=== PATIENT | female | born 1960 | race American Indian/Alaskan Native ===

== ENCOUNTER 2021-03-20 09:12 | Inpatient (IN) | payer MEDICARE ==
[2021-03-20] MEDS ORDERED: IPRATROPIUM/ALBUTEROL SULFATE 3 ML AMPUL.NEB IH ONE (09:49)
[2021-03-20] MEDS ORDERED: methylPREDNISolone Sod Succinate 125 MG/2 ML INJ IV ONE (09:49)
[2021-03-20] MEDS ORDERED: MAGNESIUM SULFATE 2 GM/50 ML BAG IV ONE (09:49)
--- NOTE | 2021-03-20 09:56 | Emergency Department Report ---
ED General Adult HPI - General Chief complaint: Dyspnea/Respdistress Stated complaint: DAT Source: EMS Mode of arrival: Stretcher Limitations: No Limitations - History of Present Illness Initial comments: This is a 60-year-old female with a history of asthma on home nebulizer therapy. She states she used her machine twice yesterday but not today. She has had a nonproductive cough. She denies fever and chills. She has not had a Covid vaccine. She denies any recent exposures. She is not on oral steroids. She denies a history of cardiac problems other than high blood pressure. She has flared up for at least the last 2 days. She does not complain of chest pain. She denies lower extremity swelling but she is noted to have some hand edema. -: Gradual, days(s) Associated Symptoms: denies other symptoms, cough, shortness of breath Treatments Prior to Arrival: none - Related Data Home Medications Medication Instructions Recorded Confirmed Last Taken Sertraline 25 mg PO DAILY 09/26/20 09/26/20 Unknown Previous Rx's Medication Instructions Recorded Last Taken Type Albuterol Sulfate [Albuterol 0.63% 0.63 mg IH TID PRN #90 ml 09/29/20 Unknown Rx NEBS] Ipratropium/Albuterol Sulfate 1 ampul IH Q6HRT #120 ampul.neb 09/29/20 Unknown Rx [DUONEB *Not for PRN Use*] Irbesartan 150 mg PO DAILY #30 09/29/20 Unknown Rx Prednisone [predniSONE 10 mg 10 mg PO .TAPER #1 tab.ds.pk 09/29/20 Unknown Rx (6-Day Pack, 21 Tabs)] hydrALAZINE [Apresoline TAB] 50 mg PO Q8HR #90 tablet 09/29/20 Unknown Rx hydroCHLOROthiazide [HCTZ] 25 mg PO QDAY #30 tablet 09/29/20 Unknown Rx Allergies Allergy/AdvReac Type Severity Reaction Status Date / Time No Known Allergies Allergy Verified 09/25/20 22:47 ED Review of Systems ROS: Stated complaint: DAT Other details as noted in HPI Comment: Unobtainable due to pts medical conditions (Limited due to respiratory distress but adequately obtained) Constitutional: denies: chills, fever Eyes: denies: eye pain, vision change ENT: denies: ear pain, throat pain Respiratory: cough, wheezing Cardiovascular: denies: chest pain, palpitations Endocrine: no symptoms reported Gastrointestinal: denies: abdominal pain, nausea, diarrhea Genitourinary: denies: urgency, dysuria, discharge Musculoskeletal: denies: back pain, arthralgia Skin: denies: rash, lesions Neurological: denies: headache, weakness, paresthesias Psychiatric: denies: anxiety, depression Hematological/Lymphatic: denies: easy bleeding, easy bruising ED Past Medical Hx - Past Medical History Hx Hypertension: Yes Hx Heart Attack/AMI: No Hx Congestive Heart Failure: No Hx Diabetes: No Hx Pulmonary Embolism: No Hx Liver Disease: No Hx Arthritis: Yes Hx Kidney Stones: No Hx Asthma: Yes Hx COPD: No Hx Tuberculosis: No Hx HIV: No - Surgical History Hx Coronary Stent: No Hx Open Heart Surgery: No Hx Pacemaker: No Hx Internal Defibrillator: No Hx Cholecystectomy: No Hx Appendectomy: No Hx Breast Surgery: No - Social History Smoking Status: Unknown if ever smoked - Medications Home Medications: Home Medications Medication Instructions Recorded Confirmed Last Taken Type Sertraline 25 mg PO DAILY 09/26/20 09/26/20 Unknown History Albuterol Sulfate [Albuterol 0.63% 0.63 mg IH TID PRN #90 ml 09/29/20 Unknown Rx NEBS] Ipratropium/Albuterol Sulfate 1 ampul IH Q6HRT #120 ampul.neb 09/29/20 Unknown Rx [DUONEB *Not for PRN Use*] Irbesartan 150 mg PO DAILY #30 09/29/20 Unknown Rx Prednisone [predniSONE 10 mg 10 mg PO .TAPER #1 tab.ds.pk 09/29/20 Unknown Rx (6-Day Pack, 21 Tabs)] hydrALAZINE [Apresoline TAB] 50 mg PO Q8HR #90 tablet 09/29/20 Unknown Rx hydroCHLOROthiazide [HCTZ] 25 mg PO QDAY #30 tablet 09/29/20 Unknown Rx ED Physical Exam - General Limitations: No Limitations ED Course Vital Signs 03/20/21 03/20/21 03/20/21 09:37 10:41 11:30 Temperature 98.8 F Pulse Rate 94 H Pulse Rate [ 102 H 106 H Anterior Bilateral Throughout] Respiratory 16 Rate Respiratory 22 24 Rate [Anterior Bilateral Throughout] Blood Pressure 172/103 O2 Sat by Pulse 97 Oximetry 03/20/21 11:46 Temperature Pulse Rate 100 H Pulse Rate [ Anterior Bilateral Throughout] Respiratory Rate Respiratory Rate [Anterior Bilateral Throughout] Blood Pressure O2 Sat by Pulse Oximetry - Reevaluation(s) Reevaluation #1: Patient with persistent wheezing. Her work of breathing has improved. Her oxygenation is stable. Discussed case with hospitalist. He has agreed with admission. I have ordered an ABG. I do not anticipate that this patient will need BiPAP at this juncture. 03/20/21 12:08 ED Medical Decision Making - Lab Data Result diagrams: 03/20/21 10:20 03/20/21 10:20 Laboratory Results - last 24 hr 03/20/21 03/20/21 03/20/21 10:20 10:20 10:20 WBC 6.2 RBC 4.82 Hgb 13.4 Hct 39.9 MCV 83 MCH 28 MCHC 34 RDW 13.7 Plt Count 158 Lymph % (Auto) 9.3 L [place] % (Auto) 6.5 Eos % (Auto) 0.8 Baso % (Auto) 0.9 Lymph # (Auto) 0.6 L [place] # (Auto) 0.4 Eos # (Auto) 0.0 Baso # (Auto) 0.1 Seg Neutrophils % 82.5 H Seg Neutrophils # 5.2 PT 13.1 INR 1.00 APTT 27.3 Sodium 141 Potassium 3.8 Chloride 104.6 Carbon Dioxide 25 Anion Gap 15 BUN 9 Creatinine 0.7 Estimated GFR > 60 BUN/Creatinine Ratio 13 Glucose 102 H Calcium 8.8 Total Bilirubin 0.30 Direct Bilirubin < 0.2 AST 16 ALT 14 Alkaline Phosphatase 101 Troponin T NT-Pro-B Natriuret Pep Total Protein 7.5 Albumin 3.7 L Albumin/Globulin Ratio 1.0 03/20/21 10:20 WBC RBC Hgb Hct MCV MCH MCHC RDW Plt Count Lymph % (Auto) [place] % (Auto) Eos % (Auto) Baso % (Auto) Lymph # (Auto) [place] # (Auto) Eos # (Auto) Baso # (Auto) Seg Neutrophils % Seg Neutrophils # PT INR APTT Sodium Potassium Chloride Carbon Dioxide Anion Gap BUN Creatinine Estimated GFR BUN/Creatinine Ratio Glucose Calcium Total Bilirubin Direct Bilirubin AST ALT Alkaline Phosphatase Troponin T < 0.010 NT-Pro-B Natriuret Pep 109.0 Total Protein Albumin Albumin/Globulin Ratio - EKG Data -: EKG Interpreted by Me EKG shows normal: sinus rhythm, axis, intervals, QRS complexes, ST-T waves Rate: normal - EKG Data Interpretation: other (PVC) - Radiology Data Radiology results: report reviewed, image reviewed Chest x-ray no acute process Critical care attestation.: If time is entered above; I have spent that time in minutes in the direct care of this critically ill patient, excluding procedure time. ED Disposition Clinical Impression: Status asthmaticus Qualifiers: Asthma severity: moderate Asthma persistence: persistent Qualified Code(s): J45.42 - Moderate persistent asthma with status asthmaticus Disposition: OP ADMIT IP TO THIS HOSP Is pt being admited?: Yes Does the pt Need Aspirin: No Condition: Stable Referrals: PRIMARY CARE, [Primary Care Provider] - 3-5 Days Time of Disposition: 12:10
--- NOTE | 2021-03-20 10:22 | XRay Report ---
CHEST 1 VIEW 03/20/2021 10:14 AM INDICATION / CLINICAL INFORMATION: DAT. COMPARISON: 09/25/2020 FINDINGS: SUPPORT DEVICES: None. HEART / MEDIASTINUM: Stable. LUNGS / PLEURA: No significant pulmonary or pleural abnormality. No pneumothorax. ADDITIONAL FINDINGS: No significant additional findings. IMPRESSION: 1. No acute findings. No significant interval change since 09/25/2020 Signer Name: Andrew Chavez MD Signed: 03/20/2021 10:18 AM Workstation Name: [id number]
[2021-03-20 10:41] LABS: Basophils # (Auto) 0.1 K/mm3 (0.0-0.1); Basophils % (Auto) 0.9 % (0.0-1.8); Eosinophils % (Auto) 0.8 % (0.0-4.3); Hematocrit 39.9 % (30.3-42.9); Hemoglobin 13.4 gm/dl (10.1-14.3); Lymphocytes # (Auto) 0.6 K/mm3 (1.2-5.4); Lymphocytes % (Auto) 9.3 % (13.4-35.0); Mean Corpuscular HGB Conc 34 % (30-34); Mean Corpuscular Volume 83 fl (79-97); Monocytes # (Auto) 0.4 K/mm3 (0.0-0.8); Monocytes % (Auto) 6.5 % (0.0-7.3); Platelet Count 158 K/mm3 (140-440); Red Blood Count 4.82 M/mm3 (3.65-5.03); Red Cell Distribution Width 13.7 % (13.2-15.2)
[2021-03-20 10:50] LABS: Partial Thromboplastin Time 27.3 Sec. (24.2-36.6)
[2021-03-20 11:05] LABS: Alanine Aminotransferase 14 units/L (7-56); Albumin 3.7 g/dL (3.9-5); BUN/Creatinine Ratio 13; Bilirubin,Direct < 0.2 mg/dL (0-0.2); Blood Urea Nitrogen 9 mg/dL (7-17); Calcium 8.8 mg/dL (8.4-10.2); Hemolysis Index 1
[2021-03-20] MEDS ORDERED: ALBUTEROL 2.5 MG/3 ML NEBU IH ONE ×2 (11:27→11:32)
[2021-03-20] MEDS ORDERED: ONDANSETRON 4 MG/2 ML INJ IV PRN (12:39)
--- NOTE | 2021-03-20 12:39 | History and Physical Report ---
History of Present Illness Chief complaint: I feel short of breath History of present illness: 60 YO Female with Asthma, Obesity Hypoventilation Syndrome, OA, HTN presents to ED for evaluation. Patient reports "I feel short of breath". Patient states that she has experienced shortness of breath over the past 4 days with worsening symptoms over the past 2 days. Patient denies improvement in symptoms with increased nebulizer use. Patient acknowledges increased frequency of dry cough, dyspnea on exertion, and decreased exercise tolerance. EMS notified and upon arrival the patient was found to be in distress and subsequently transported to [facility] for further care and evaluation of the aforementioned symptoms. The patient was seen and evaluated in the emergency department. All lab and imaging studies reviewed. Patient found to have audible wheezes on exam, and is using accessory muscles to breathe, and is unable to speak in complete sentences due to shortness of breath. Patient treated with nebulizer therapy with mild improvement in symptoms. Patient desaturates to a pulse oximetry of 88% with exertion. Patient admitted to medical floor due to increased risk of worsening symptoms and minimal response to bronchodilator therapy. Patient also found to have accelerated hypertension. Patient denies fever, chills, chest pain, palpitation, productive cough, skin rash, recent ill contacts, or known exposure to COVID-19. Prior admission on 09/27/2020 reviewed. All medication listed at time of admission has been reconciled. Advanced care planning conducted in the emergency department. Past History Past Medical History: arthritis, hypertension, other (See HPI) Past Surgical History: No surgical history, Other (Reviewed) Social history: single. denies: smoking, alcohol abuse, prescription drug abuse Family history: diabetes, hypertension Medications and Allergies Allergies Allergy/AdvReac Type Severity Reaction Status Date / Time No Known Allergies Allergy Verified 09/25/20 22:47 Home Medications Medication Instructions Recorded Confirmed Last Taken Type Sertraline 25 mg PO DAILY 09/26/20 09/26/20 Unknown History Albuterol Sulfate [Albuterol 0.63% 0.63 mg IH TID PRN #90 ml 09/29/20 Unknown Rx NEBS] Ipratropium/Albuterol Sulfate 1 ampul IH Q6HRT #120 ampul.neb 09/29/20 Unknown Rx [DUONEB *Not for PRN Use*] Irbesartan 150 mg PO DAILY #30 09/29/20 Unknown Rx Prednisone [predniSONE 10 mg 10 mg PO .TAPER #1 tab.ds.pk 09/29/20 Unknown Rx (6-Day Pack, 21 Tabs)] hydrALAZINE [Apresoline TAB] 50 mg PO Q8HR #90 tablet 09/29/20 Unknown Rx hydroCHLOROthiazide [HCTZ] 25 mg PO QDAY #30 tablet 09/29/20 Unknown Rx Review of Systems Constitutional: no weight loss, no weight gain, no fever, no chills Ears, nose, mouth and throat: no ear pain, no ear discharge, no decreased hearing Breasts: no change in shape, no swelling, no mass Cardiovascular: no chest pain, no orthopnea, no palpitations, no rapid/irregular heart beat, no syncope, no lightheadedness Respiratory: shortness of breath, dyspnea on exertion, wheezing, no cough Gastrointestinal: no abdominal pain, no nausea, no vomiting, no diarrhea, no change in bowel habits Genitourinary Female: no pelvic pain, no flank pain, no dysuria, no urinary frequency Rectal: no pain, no incontinence, no bleeding Musculoskeletal: no neck stiffness, no neck pain, no shooting arm pain, no shooting leg pain Integumentary: no rash, no pruritis, no redness, no sores, no jaundice Neurological: no head injury, no transient paralysis, no paralysis, no parathesias, no numbness, no seizures Psychiatric: no anxiety, no memory loss, no change in sleep habits, no insomnia, no change in libido Endocrine: no cold intolerance, no heat intolerance, no excessive thirst, no polydipsia, no nocturia, no excessive sweating Hematologic/Lymphatic: no easy bruising, no easy bleeding, no lymphadenopathy, no lymphedema Allergic/Immunologic: no urticaria, no allergic rhinitis, no anaphylaxis, no angioedema Exam - Constitutional Vitals: Temp Pulse Resp BP Pulse Ox 98.8 F 100 H 24 172/103 97 03/20/21 09:37 03/20/21 11:46 03/20/21 11:30 03/20/21 09:37 03/20/21 09:37 General appearance: Present: mild distress - EENT Eyes: Present: PERRL ENT: hearing intact, clear oral mucosa - Neck Neck: Present: supple, normal ROM - Respiratory Respiratory effort: labored, accessory muscle use, stridor Respiratory: bilateral: diminished, wheezing - Cardiovascular Heart Sounds: Present: S1 & S2. Absent: rub, click - Extremities Extremities: pulses symmetrical, No edema Peripheral Pulses: within normal limits - Abdominal General gastrointestinal: Present: soft, non-tender, non-distended, normal bowel sounds Female genitourinary: Present: normal - Integumentary Integumentary: Present: clear, warm, dry - Musculoskeletal Musculoskeletal: gait normal, strength equal bilaterally - Psychiatric Psychiatric: appropriate mood/affect, intact judgment & insight - Neurologic Neurologic: CNII-XII intact, moves all extremities HEART Score - HEART Score Troponin: Troponin T < 0.010 ng/mL (0.00-0.029) 03/20/21 10:20 Results - Labs CBC & Chem 7: 03/20/21 10:20 03/20/21 10:20 Labs: Abnormal lab results 03/20/21 03/20/21 Range/Units 10:20 10:20 Lymph % (Auto) 9.3 L (13.4-35.0) % Lymph # (Auto) 0.6 L (1.2-5.4) K/mm3 Seg Neutrophils % 82.5 H (40.0-70.0) % Glucose 102 H (65-100) mg/dL Albumin 3.7 L (3.9-5) g/dL Assessment and Plan - Patient Problems (1) Status asthmaticus Current Visit: Yes Status: Acute Qualifiers: Asthma severity: moderate Asthma persistence: persistent Qualified Code(s): J45.42 - Moderate persistent asthma with status asthmaticus Plan to address problem: Chest x-ray, nebulizer therapy, pulse oximetry, IV steroid therapy, supplemental oxygen, pulmonary toilet. (2) Obesity hypoventilation syndrome Current Visit: Yes Status: Acute Plan to address problem: Balanced diet, increase physical activity discharge, outpatient pulmonary follow-up for sleep study. (3) Accelerated hypertension Current Visit: Yes Status: Acute Plan to address problem: Monitor blood pressure every shift, continue medical management. (4) Advance care planning Current Visit: Yes Status: Acute Plan to address problem: Disease education conducted, care plan discussed, diagnosis discussed, prognosis discussed, patient is full code. Patient acknowledges understanding agree with care plan, +30 minutes. (5) DVT prophylaxis Current Visit: No Status: Acute Plan to address problem: SCD to bilateral lower extremities while in bed, patient is ambulatory.
[2021-03-20] MEDS ORDERED: LEVALBUTEROL 0.63 MG/3 ML NEBU IH ONE (15:12)
[2021-03-20] MEDS: LOSARTAN 50 MG TAB PO SCH ×2 (16:28→20:43)
[2021-03-20] MEDS: hydrALAZINE 25 MG TAB PO SCH ×2 (16:28→20:43)
[2021-03-20] MEDS: SERTRALINE 25 MG TAB PO SCH ×2 (16:29→20:43)
[2021-03-20] MEDS: hydroCHLOROthiazide 25 MG TAB PO SCH (16:30)
[2021-03-21] MEDS: ALBUTEROL 2.5 MG/3 ML NEBU IH PRN ×2 (00:11→09:11)
[2021-03-21] MEDS: FAMOTIDINE 10 MG TAB PO SCH ×3 (00:36→22:02)
[2021-03-21] MEDS: methylPREDNISolone Sod Succinate 40 MG/1 ML INJ IV SCH ×4 (00:44→22:02)
[2021-03-21] MEDS: hydrALAZINE 25 MG TAB PO SCH ×6 (00:46→22:15)
[2021-03-21 07:52] LABS: BUN/Creatinine Ratio 20; Blood Urea Nitrogen 14 mg/dL (7-17); Calcium 8.9 mg/dL (8.4-10.2); Hemolysis Index 6
--- NOTE | 2021-03-21 08:14 | Progress Note ---
Assessment and Plan Assessment and plan: Acute asthma exacerbation Obesity hypoventilation syndrome/MENA Accelerated hypertension 03/21/2021. Continue bronchodilators/nebulizers and IV steroids. Continue antihypertensive medications. BiPAP as clinically indicated. O2 supplementation to maintain sats greater than 92%. History Interval history: No new issues overnight. Hospitalist Physical - Constitutional Vitals: Temp Pulse Resp BP Pulse Ox 98.8 F 81 20 158/84 97 03/21/21 07:00 03/21/21 07:00 03/21/21 07:00 03/21/21 07:00 03/21/21 07:00 General appearance: Present: no acute distress - EENT Eyes: Present: PERRL, EOM intact ENT: hearing intact, clear oral mucosa, dentition normal - Neck Neck: Present: supple, normal ROM - Respiratory Respiratory effort: normal Respiratory: bilateral: CTA - Cardiovascular Rhythm: regular Heart Sounds: Present: S1 & S2. Absent: gallop, rub - Extremities Extremities: no ischemia, No edema, Full ROM - Abdominal General gastrointestinal: soft, non-tender, non-distended, normal bowel sounds - Integumentary Integumentary: Present: clear, warm, dry - Neurologic Neurologic: CNII-XII intact, moves all extremities HEART Score - HEART Score Troponin: Troponin T < 0.010 ng/mL (0.00-0.029) 03/20/21 10:20 Results - Labs CBC & Chem 7: 03/20/21 10:20 03/21/21 06:46 Labs: Laboratory Last Values WBC 6.2 K/mm3 (4.5-11.0) 03/20/21 10:20 RBC 4.82 M/mm3 (3.65-5.03) 03/20/21 10:20 Hgb 13.4 gm/dl (10.1-14.3) 03/20/21 10:20 Hct 39.9 % (30.3-42.9) 03/20/21 10:20 MCV 83 fl (79-97) 03/20/21 10:20 MCH 28 pg (28-32) 03/20/21 10:20 MCHC 34 % (30-34) 03/20/21 10:20 RDW 13.7 % (13.2-15.2) 03/20/21 10:20 Plt Count 158 K/mm3 (140-440) 03/20/21 10:20 Lymph % (Auto) 9.3 % (13.4-35.0) L 03/20/21 10:20 [place] % (Auto) 6.5 % (0.0-7.3) 03/20/21 10:20 Eos % (Auto) 0.8 % (0.0-4.3) 03/20/21 10:20 Baso % (Auto) 0.9 % (0.0-1.8) 03/20/21 10:20 Lymph # (Auto) 0.6 K/mm3 (1.2-5.4) L 03/20/21 10:20 [place] # (Auto) 0.4 K/mm3 (0.0-0.8) 03/20/21 10:20 Eos # (Auto) 0.0 K/mm3 (0.0-0.4) 03/20/21 10:20 Baso # (Auto) 0.1 K/mm3 (0.0-0.1) 03/20/21 10:20 Seg Neutrophils % 82.5 % (40.0-70.0) H 03/20/21 10:20 Seg Neutrophils # 5.2 K/mm3 (1.8-7.7) 03/20/21 10:20 PT 13.1 Sec. (12.2-14.9) 03/20/21 10:20 INR 1.00 (0.87-1.13) 03/20/21 10:20 APTT 27.3 Sec. (24.2-36.6) 03/20/21 10:20 ABG pH 7.360 (7.320-7.450) 03/20/21 15:57 POC ABG pCO2 39.3 mmHg (32.0-48.0) 03/20/21 15:57 POC ABG pO2 87.9 mmHg (83-108) 03/20/21 15:57 POC ABG HCO3 21.7 03/20/21 15:57 ABG O2 Saturation 97.0 (0-100) 03/20/21 15:57 POC ABG Base Excess -3.4 03/20/21 15:57 ABG Hemoglobin 14.3 (12.0-17.5) 03/20/21 15:57 ABG Oxyhemoglobin 95.5 (94-98) 03/20/21 15:57 ABG Methemoglobin 0.3 (0.0-1.5) 03/20/21 15:57 ABG Sodium 141.3 mmol/L (136.0-145.0) 03/20/21 15:57 ABG Potassium 3.6 mmol/L (3.40-4.50) 03/20/21 15:57 ABG Chloride 105.0 mmol/L (98-107) 03/20/21 15:57 ABG Glucose 177 mg/dL (65-95) H 03/20/21 15:57 Carboxyhemoglobin 1.2 (0.5-1.5) 03/20/21 15:57 FiO2 % 35.0 03/20/21 15:57 Sodium 140 mmol/L (137-145) 03/21/21 06:46 Potassium 4.3 mmol/L (3.6-5.0) 03/21/21 06:46 Chloride 103.1 mmol/L (98-107) 03/21/21 06:46 Carbon Dioxide 26 mmol/L (22-30) 03/21/21 06:46 Anion Gap 15 mmol/L 03/21/21 06:46 BUN 14 mg/dL (7-17) 03/21/21 06:46 Creatinine 0.7 mg/dL (0.6-1.2) 03/21/21 06:46 Estimated GFR > 60 ml/min 03/21/21 06:46 BUN/Creatinine Ratio 20 % 03/21/21 06:46 Glucose 137 mg/dL (65-100) H 03/21/21 06:46 Calcium 8.9 mg/dL (8.4-10.2) 03/21/21 06:46 Total Bilirubin 0.30 mg/dL (0.1-1.2) 03/20/21 10:20 Direct Bilirubin < 0.2 mg/dL (0-0.2) 03/20/21 10:20 AST 16 units/L (5-40) 03/20/21 10:20 ALT 14 units/L (7-56) 03/20/21 10:20 Alkaline Phosphatase 101 units/L (35-129) 03/20/21 10:20 Troponin T < 0.010 ng/mL (0.00-0.029) 03/20/21 10:20 NT-Pro-B Natriuret Pep 109.0 pg/mL (0-900) 03/20/21 10:20 Total Protein 7.5 g/dL (6.3-8.2) 03/20/21 10:20 Albumin 3.7 g/dL (3.9-5) L 03/20/21 10:20 Albumin/Globulin Ratio 1.0 % 03/20/21 10:20 Arterial Blood Glucose 177 mg/dL (65-95) H 03/20/21 15:57 Arterial Blood Ionized Calcium 4.7 mg/dL (4.6-5.3) 03/20/21 15:57 Active Medications - Current Medications Current Medications: Generic Name Dose Route Start Last Admin Trade Name Freq PRN Reason Stop Dose Admin Acetaminophen 650 mg 03/20/21 12:39 Acetaminophen 325 Mg Tab PO Q4H PRN Pain MILD(1-3)/Fever >100.5/YOUSIF Albuterol 2.5 mg 03/20/21 12:39 03/21/21 00:11 Albuterol 2.5 Mg/3 Ml Nebu IH 2.5 mg Q4H PRN Administration Shortness Of Breath Famotidine 10 mg 03/20/21 22:00 03/21/21 00:36 Famotidine 10 Mg Tab PO 10 mg BID REMI Administration Hydralazine HCl 50 mg 03/20/21 15:00 03/21/21 06:38 Hydralazine 25 Mg Tab PO 50 mg Q8HR REMI Administration Hydrochlorothiazide 25 mg 03/20/21 15:00 03/20/21 16:30 Hydrochlorothiazide 25 Mg Tab PO 25 mg QDAY REMI Administration Losartan Potassium 50 mg 03/20/21 15:00 03/20/21 20:43 Losartan 50 Mg Tab PO Not Given QDAY REMI Methylprednisolone Sodium Succinate 40 mg 03/20/21 22:00 03/21/21 06:38 Methylprednisolone Sod Succinate 40 Mg/1 Ml Inj IV 40 mg Q8HR REMI Administration Ondansetron HCl 4 mg 03/20/21 12:39 Ondansetron 4 Mg/2 Ml Inj IV Q8H PRN Nausea And Vomiting Sertraline HCl 25 mg 03/20/21 15:00 03/20/21 20:43 Sertraline 25 Mg Tab PO Not Given QDAY REMI Sodium Chloride 10 ml 03/20/21 22:00 03/21/21 00:45 Sodium Chloride 0.9% 10 Ml Flush Syringe IV 10 ml BID REMI Administration Sodium Chloride 10 ml 03/20/21 12:39 Sodium Chloride 0.9% 10 Ml Flush Syringe IV PRN PRN LINE FLUSH
[2021-03-21] MEDS ORDERED: IRBESARTAN 150 MG PO SCH (10:00)
[2021-03-21] MEDS ORDERED: SERTRALINE 25 MG PO SCH (10:00)
[2021-03-21] MEDS: LOSARTAN 50 MG TAB PO SCH (10:38)
[2021-03-21] MEDS: hydroCHLOROthiazide 25 MG TAB PO SCH (10:38)
[2021-03-21] MEDS: SERTRALINE 25 MG TAB PO SCH (10:38)
[2021-03-21] MEDS ORDERED: ALBUTEROL 2.5 MG/3 ML NEBU IH PRN (12:30)
[2021-03-21] MEDS: IPRATROPIUM/ALBUTEROL SULFATE 3 ML AMPUL.NEB IH SCH ×2 (14:55→21:32)
[2021-03-21] MEDS: ARFORMOTEROL 15 MCG/2 ML NEBU IH SCH (21:32)
[2021-03-21] MEDS: BUDESONIDE 0.5 MG/2 ML NEBU IH SCH (21:32)
[2021-03-22] MEDS: IPRATROPIUM/ALBUTEROL SULFATE 3 ML AMPUL.NEB IH SCH ×4 (02:18→20:39)
[2021-03-22] MEDS ORDERED: methylPREDNISolone Sod Succinate 125 MG/2 ML INJ IV ONE (03:24)
[2021-03-22] MEDS: hydrALAZINE 25 MG TAB PO SCH (05:50)
[2021-03-22] MEDS: methylPREDNISolone Sod Succinate 40 MG/1 ML INJ IV SCH ×3 (05:50→22:02)
[2021-03-22 08:09] LABS: Hematocrit 42.2 % (30.3-42.9); Hemoglobin 13.5 gm/dl (10.1-14.3); Mean Corpuscular HGB Conc 32 % (30-34); Mean Corpuscular Volume 84 fl (79-97); Platelet Count 207 K/mm3 (140-440); Red Blood Count 5.03 M/mm3 (3.65-5.03); Red Cell Distribution Width 14.2 % (13.2-15.2)
[2021-03-22 08:29] LABS: Blood Urea Nitrogen 16 mg/dL (7-17); Calcium 9.2 mg/dL (8.4-10.2); Hemolysis Index 12
[2021-03-22 08:32] LABS: BUN/Creatinine Ratio 23
[2021-03-22 08:57] LABS: Platelet Estimate Consistent w Auto; RBC Morphology Normal; Total Cells Counted 100
[2021-03-22] MEDS: ARFORMOTEROL 15 MCG/2 ML NEBU IH SCH ×2 (09:11→20:39)
[2021-03-22] MEDS: BUDESONIDE 0.5 MG/2 ML NEBU IH SCH ×2 (09:12→20:39)
[2021-03-22] MEDS: FAMOTIDINE 10 MG TAB PO SCH ×2 (09:40→22:02)
[2021-03-22] MEDS: SERTRALINE 25 MG TAB PO SCH (09:41)
[2021-03-22] MEDS: hydroCHLOROthiazide 25 MG TAB PO SCH (09:41)
[2021-03-22] MEDS: LOSARTAN 50 MG TAB PO SCH (09:41)
--- NOTE | 2021-03-22 10:50 | Progress Note ---
Assessment and Plan Assessment and plan: --Acute exacerbation of bronchial asthma , oxygen titrate O2 sats to more than 90% nebulizer therapy, tapering dose of IV steroids, and IV Levaquin Inhalation steroids, supportive care I will also add antihistamine breathing exercise, Closely monitor O2 requirements, home oxygen evaluation at discharge I will also give some Lasix IV Pulmonary consult if no improvement Home O2 evaluation at discharge --Obesity; BMI 31.9 Lifestyle changes, dietary modification exercise as tolerated When medically stable, increase physical activity discharge, outpatient pulmonary follow-up for sleep study. To evaluate for MENA --Accelerated hypertension Monitor blood pressure every shift, continue medical management. --Advance care planning disease education conducted, care plan discussed, diagnosis discussed, prognosis discussed, patient is full code. Patient acknowledges understanding agree with care plan, +30 minutes. --DVT prophylaxis Current Visit: No Status: Acute Plan to address problem: SCD to bilateral lower extremities while in bed, patient is ambulatory. Closely monitor patient and adjust management as needed Plan of care reviewed with the patient and her nurse 03/22/2021; antihistamine, IV antibiotic, IV Lasix regimen Tapering dose of steroids, consult pulmonary if needed History Interval history: I have seen and examined the patient at the bedside Patient's chart and medications reviewed Patient has severe wheezing and shortness of breath Denies chest pain Vital signs noted Hospitalist Physical - Constitutional Vitals: Temp Pulse Resp BP Pulse Ox 98.5 F 93 H 20 149/96 96 03/22/21 03:55 03/22/21 10:20 03/22/21 09:12 03/22/21 10:20 03/22/21 10:20 General appearance: Present: mild distress, well-nourished, obese, other (Audible wheeze) - EENT Eyes: Present: PERRL, EOM intact ENT: hearing intact, clear oral mucosa - Neck Neck: Present: supple, normal ROM - Respiratory Respiratory effort: labored Respiratory: bilateral: diminished, rhonchi, wheezing - Cardiovascular Rhythm: regular Heart Sounds: Present: S1 & S2 - Extremities Extremities: no ischemia, No edema - Abdominal General gastrointestinal: soft, non-tender, non-distended, normal bowel sounds - Integumentary Integumentary: Present: clear, warm - Psychiatric Psychiatric: appropriate mood/affect, cooperative - Neurologic Neurologic: CNII-XII intact, moves all extremities HEART Score - HEART Score Troponin: Troponin T < 0.010 ng/mL (0.00-0.029) 03/20/21 10:20 Results - Labs CBC & Chem 7: 03/22/21 07:04 03/22/21 07:04 Labs: Laboratory Last Values WBC 15.2 K/mm3 (4.5-11.0) H 03/22/21 07:04 RBC 5.03 M/mm3 (3.65-5.03) 03/22/21 07:04 Hgb 13.5 gm/dl (10.1-14.3) 03/22/21 07:04 Hct 42.2 % (30.3-42.9) 03/22/21 07:04 MCV 84 fl (79-97) 03/22/21 07:04 MCH 27 pg (28-32) L 03/22/21 07:04 MCHC 32 % (30-34) 03/22/21 07:04 RDW 14.2 % (13.2-15.2) 03/22/21 07:04 Plt Count 207 K/mm3 (140-440) 03/22/21 07:04 Lymph % (Auto) 9.3 % (13.4-35.0) L 03/20/21 10:20 Schleicher % (Auto) 6.5 % (0.0-7.3) 03/20/21 10:20 Eos % (Auto) 0.8 % (0.0-4.3) 03/20/21 10:20 Baso % (Auto) 0.9 % (0.0-1.8) 03/20/21 10:20 Lymph # (Auto) 0.6 K/mm3 (1.2-5.4) L 03/20/21 10:20 Schleicher # (Auto) 0.4 K/mm3 (0.0-0.8) 03/20/21 10:20 Eos # (Auto) 0.0 K/mm3 (0.0-0.4) 03/20/21 10:20 Baso # (Auto) 0.1 K/mm3 (0.0-0.1) 03/20/21 10:20 Add Manual Diff Complete 03/22/21 07:04 Total Counted 100 03/22/21 07:04 Seg Neutrophils % [employer] 03/22/21 07:04 Seg Neuts % (Manual) 96.0 % (40.0-70.0) H 03/22/21 07:04 Lymphocytes % (Manual) 1.0 % (13.4-35.0) L 03/22/21 07:04 Monocytes % (Manual) 3.0 % (0.0-7.3) 03/22/21 07:04 Nucleated RBC % Not Reportable 03/22/21 07:04 Seg Neutrophils # 5.2 K/mm3 (1.8-7.7) 03/20/21 10:20 Seg Neutrophils # Man 14.6 K/mm3 (1.8-7.7) H 03/22/21 07:04 Band Neutrophils # 0.0 K/mm3 03/22/21 07:04 Lymphocytes # (Manual) 0.2 K/mm3 (1.2-5.4) L 03/22/21 07:04 Abs React Lymphs (Man) 0.0 K/mm3 03/22/21 07:04 Monocytes # (Manual) 0.5 K/mm3 (0.0-0.8) 03/22/21 07:04 Eosinophils # (Manual) 0.0 K/mm3 (0.0-0.4) 03/22/21 07:04 Basophils # (Manual) 0.0 K/mm3 (0.0-0.1) 03/22/21 07:04 Metamyelocytes # 0.0 K/mm3 03/22/21 07:04 Myelocytes # 0.0 K/mm3 03/22/21 07:04 Promyelocytes # 0.0 K/mm3 03/22/21 07:04 Blast Cells # 0.0 K/mm3 03/22/21 07:04 WBC Morphology Not Reportable 03/22/21 07:04 Hypersegmented Neuts Not Reportable 03/22/21 07:04 Hyposegmented Neuts Not Reportable 03/22/21 07:04 Hypogranular Neuts Not Reportable 03/22/21 07:04 Smudge Cells Not Reportable 03/22/21 07:04 Toxic Granulation Not Reportable 03/22/21 07:04 Toxic Vacuolation Not Reportable 03/22/21 07:04 Dohle Bodies Not Reportable 03/22/21 07:04 Pelger-Huet Anomaly Not Reportable 03/22/21 07:04 Yobani Rods Not Reportable 03/22/21 07:04 Platelet Estimate Consistent w auto 03/22/21 07:04 Clumped Platelets Not Reportable 03/22/21 07:04 Plt Clumps, EDTA Not Reportable 03/22/21 07:04 Large Platelets Not Reportable 03/22/21 07:04 Giant Platelets Not Reportable 03/22/21 07:04 Platelet Satelliting Not Reportable 03/22/21 07:04 Plt Morphology Comment Not Reportable 03/22/21 07:04 RBC Morphology Normal 03/22/21 07:04 Dimorphic RBCs Not Reportable 03/22/21 07:04 Polychromasia Not Reportable 03/22/21 07:04 Hypochromasia Not Reportable 03/22/21 07:04 Poikilocytosis Not Reportable 03/22/21 07:04 Anisocytosis Not Reportable 03/22/21 07:04 Microcytosis Not Reportable 03/22/21 07:04 Macrocytosis Not Reportable 03/22/21 07:04 Spherocytes Not Reportable 03/22/21 07:04 Pappenheimer Bodies Not Reportable 03/22/21 07:04 Sickle Cells Not Reportable 03/22/21 07:04 Target Cells Not Reportable 03/22/21 07:04 Tear Drop Cells Not Reportable 03/22/21 07:04 Ovalocytes Not Reportable 03/22/21 07:04 Helmet Cells Not Reportable 03/22/21 07:04 Bains-Cassandra Bodies Not Reportable 03/22/21 07:04 [place] Rings Not Reportable 03/22/21 07:04 [place] Cells Not Reportable 03/22/21 07:04 Bite Cells Not Reportable 03/22/21 07:04 Crenated Cell Not Reportable 03/22/21 07:04 Elliptocytes Not Reportable 03/22/21 07:04 Acanthocytes (Spur) Not Reportable 03/22/21 07:04 Rouleaux Not Reportable 03/22/21 07:04 Hemoglobin C Crystals Not Reportable 03/22/21 07:04 Schistocytes Not Reportable 03/22/21 07:04 Malaria parasites Not Reportable 03/22/21 07:04 Aubrey Bodies Not Reportable 03/22/21 07:04 Hem Pathologist Commnt No 03/22/21 07:04 PT 13.1 Sec. (12.2-14.9) 03/20/21 10:20 INR 1.00 (0.87-1.13) 03/20/21 10:20 APTT 27.3 Sec. (24.2-36.6) 03/20/21 10:20 ABG pH 7.360 (7.320-7.450) 03/20/21 15:57 POC ABG pCO2 39.3 mmHg (32.0-48.0) 03/20/21 15:57 POC ABG pO2 87.9 mmHg (83-108) 03/20/21 15:57 POC ABG HCO3 21.7 03/20/21 15:57 ABG O2 Saturation 97.0 (0-100) 03/20/21 15:57 POC ABG Base Excess -3.4 03/20/21 15:57 ABG Hemoglobin 14.3 (12.0-17.5) 03/20/21 15:57 ABG Oxyhemoglobin 95.5 (94-98) 03/20/21 15:57 ABG Methemoglobin 0.3 (0.0-1.5) 03/20/21 15:57 ABG Sodium 141.3 mmol/L (136.0-145.0) 03/20/21 15:57 ABG Potassium 3.6 mmol/L (3.40-4.50) 03/20/21 15:57 ABG Chloride 105.0 mmol/L (98-107) 03/20/21 15:57 ABG Glucose 177 mg/dL (65-95) H 03/20/21 15:57 Carboxyhemoglobin 1.2 (0.5-1.5) 03/20/21 15:57 FiO2 % 35.0 03/20/21 15:57 Sodium 140 mmol/L (137-145) 03/22/21 07:04 Potassium 4.1 mmol/L (3.6-5.0) 03/22/21 07:04 Chloride 103.7 mmol/L (98-107) 03/22/21 07:04 Carbon Dioxide 25 mmol/L (22-30) 03/22/21 07:04 Anion Gap 15 mmol/L 03/22/21 07:04 BUN 16 mg/dL (7-17) 03/22/21 07:04 Creatinine 0.7 mg/dL (0.6-1.2) 03/22/21 07:04 Estimated GFR > 60 ml/min 03/22/21 07:04 BUN/Creatinine Ratio 23 % 03/22/21 07:04 Glucose 155 mg/dL (65-100) H 03/22/21 07:04 POC Glucose 168 mg/dL (70-105) H 03/22/21 07:31 Calcium 9.2 mg/dL (8.4-10.2) 03/22/21 07:04 Total Bilirubin 0.30 mg/dL (0.1-1.2) 03/20/21 10:20 Direct Bilirubin < 0.2 mg/dL (0-0.2) 03/20/21 10:20 AST 16 units/L (5-40) 03/20/21 10:20 ALT 14 units/L (7-56) 03/20/21 10:20 Alkaline Phosphatase 101 units/L (35-129) 03/20/21 10:20 Troponin T < 0.010 ng/mL (0.00-0.029) 03/20/21 10:20 NT-Pro-B Natriuret Pep 109.0 pg/mL (0-900) 03/20/21 10:20 Total Protein 7.5 g/dL (6.3-8.2) 03/20/21 10:20 Albumin 3.7 g/dL (3.9-5) L 03/20/21 10:20 Albumin/Globulin Ratio 1.0 % 03/20/21 10:20 Arterial Blood Glucose 177 mg/dL (65-95) H 03/20/21 15:57 Arterial Blood Ionized Calcium 4.7 mg/dL (4.6-5.3) 03/20/21 15:57 Norman/IV: Voiding Method Toilet Active Medications - Current Medications Current Medications: Generic Name Dose Route Start Last Admin Trade Name Freq PRN Reason Stop Dose Admin Acetaminophen 650 mg 03/20/21 12:39 Acetaminophen 325 Mg Tab PO Q4H PRN Pain MILD(1-3)/Fever >100.5/YOUSIF Albuterol 2.5 mg 03/21/21 12:30 Albuterol 2.5 Mg/3 Ml Nebu IH Q4H PRN Shortness Of Breath Albuterol/Ipratropium 1 ampul 03/21/21 14:00 03/22/21 09:12 Ipratropium/Albuterol Sulfate 3 Ml Ampul.Neb IH Not Given Q6HRT REMI Arformoterol Tartrate 15 mcg 03/21/21 20:00 03/22/21 09:11 Arformoterol 15 Mcg/2 Ml Nebu IH 15 mcg Q12HRT REMI Administration Budesonide 0.5 mg 03/21/21 20:00 03/22/21 09:12 Budesonide 0.5 Mg/2 Ml Nebu IH 0.5 mg Q12HRT REMI Administration Famotidine 10 mg 03/20/21 22:00 03/22/21 09:40 Famotidine 10 Mg Tab PO 10 mg BID REMI Administration Hydralazine HCl 50 mg 03/20/21 15:00 03/22/21 05:50 Hydralazine 25 Mg Tab PO Not Given Q8HR REMI Hydrochlorothiazide 25 mg 03/20/21 15:00 03/22/21 09:41 Hydrochlorothiazide 25 Mg Tab PO Not Given QDAY REMI Losartan Potassium 50 mg 03/20/21 15:00 03/22/21 09:41 Losartan 50 Mg Tab PO Not Given QDAY [facility] Methylprednisolone Sodium Succinate 40 mg 03/20/21 22:00 03/22/21 05:50 Methylprednisolone Sod Succinate 40 Mg/1 Ml Inj IV 40 mg Q8HR REMI Administration Ondansetron HCl 4 mg 03/20/21 12:39 Ondansetron 4 Mg/2 Ml Inj IV Q8H PRN Nausea And Vomiting Sertraline HCl 25 mg 03/20/21 15:00 03/22/21 09:41 Sertraline 25 Mg Tab PO Not Given QDAY REMI Sodium Chloride 10 ml 03/20/21 22:00 03/22/21 09:41 Sodium Chloride 0.9% 10 Ml Flush Syringe IV 10 ml BID REMI Administration Sodium Chloride 10 ml 03/20/21 12:39 Sodium Chloride 0.9% 10 Ml Flush Syringe IV PRN PRN LINE FLUSH
[2021-03-22] MEDS ORDERED: [UNRECOGNIZED DRUG - OTHER] PO SCH (12:30)
[2021-03-22] MEDS ORDERED: LOSARTAN 50 MG TAB PO SCH (13:00)
[2021-03-22] MEDS: HYDROCHLOROTHIAZIDE PO SCH (15:57)
[2021-03-22] MEDS: IRBESARTAN PO SCH (15:57)
[2021-03-22] MEDS ORDERED: FUROSEMIDE 40 MG/4 ML INJ IV SCH (17:00)
[2021-03-22] MEDS ORDERED: CETIRIZINE 10 MG TAB PO SCH (17:00)
--- NOTE | 2021-03-22 17:50 | Electrocardiograph Report ---
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
[2021-03-22] MEDS: ACETAMINOPHEN 325 MG TAB PO PRN (22:31)
[2021-03-23] MEDS: IPRATROPIUM/ALBUTEROL SULFATE 3 ML AMPUL.NEB IH SCH ×4 (02:49→19:51)
[2021-03-23] MEDS: methylPREDNISolone Sod Succinate 40 MG/1 ML INJ IV SCH ×3 (05:44→22:22)
[2021-03-23] MEDS: ARFORMOTEROL 15 MCG/2 ML NEBU IH SCH ×2 (08:36→19:51)
[2021-03-23] MEDS: BUDESONIDE 0.5 MG/2 ML NEBU IH SCH ×2 (08:36→19:51)
[2021-03-23] MEDS: FAMOTIDINE 10 MG TAB PO SCH ×2 (09:44→22:21)
[2021-03-23] MEDS: FUROSEMIDE 40 MG/4 ML INJ IV SCH (09:45)
[2021-03-23] MEDS: SERTRALINE 25 MG TAB PO SCH (09:45)
[2021-03-23] MEDS: CETIRIZINE 10 MG TAB PO SCH (09:45)
[2021-03-23] MEDS: IRBESARTAN PO SCH (09:55)
[2021-03-23] MEDS: HYDROCHLOROTHIAZIDE PO SCH (09:55)
[2021-03-23] MEDS ORDERED: IRBESARTAN PO SCH (10:00)
[2021-03-23] MEDS ORDERED: HYDROCHLOROTHIAZIDE PO SCH (10:00)
--- NOTE | 2021-03-23 10:56 | Progress Note ---
Assessment and Plan Assessment and plan: --Acute exacerbation of bronchial asthma , oxygen titrate O2 sats to more than 90% nebulizer therapy, tapering dose of IV steroids, and IV Levaquin Inhalation steroids, supportive care I will also add antihistamine breathing exercise, Closely monitor O2 requirements, home oxygen evaluation at discharge I will also give some Lasix IV Pulmonary consult if no improvement Home O2 evaluation at discharge --Obesity; BMI 31.9 Lifestyle changes, dietary modification exercise as tolerated When medically stable, increase physical activity discharge, outpatient pulmonary follow-up for sleep study. To evaluate for MENA --Accelerated hypertension Monitor blood pressure every shift, continue medical management. --Advance care planning disease education conducted, care plan discussed, diagnosis discussed, prognosis discussed, patient is full code. Patient acknowledges understanding agree with care plan, +30 minutes. --DVT prophylaxis Current Visit: No Status: Acute Plan to address problem: SCD to bilateral lower extremities while in bed, patient is ambulatory. Closely monitor patient and adjust management as needed Plan of care reviewed with the patient and her nurse 03/22/2021; antihistamine, IV antibiotic, IV Lasix regimen Tapering dose of steroids, consult pulmonary if needed 03/23/2021; feels slightly better, PT evaluation and recommendations Home O2 evaluation and set up if needed along with home health services Possible discharge tomorrow if stable History Interval history: I have seen and examined the patient at the bedside Patient's chart and medications reviewed Patient feels slightly better Still has some wheeze Vital signs noted Hospitalist Physical - Constitutional Vitals: Temp Pulse Resp BP Pulse Ox 97.7 F 98 H 18 160/87 96 03/23/21 06:28 03/23/21 08:42 03/23/21 08:42 03/23/21 06:28 03/23/21 08:40 General appearance: Present: mild distress, well-nourished, obese, other (Audible wheeze) - EENT Eyes: Present: PERRL, EOM intact - Neck Neck: Present: supple, normal ROM - Respiratory Respiratory effort: normal Respiratory: bilateral: diminished, rhonchi, wheezing, negative: rales - Cardiovascular Rhythm: regular Heart Sounds: Present: S1 & S2 - Extremities Extremities: no ischemia, No edema - Abdominal General gastrointestinal: soft, non-tender, non-distended, normal bowel sounds - Integumentary Integumentary: Present: clear, warm - Psychiatric Psychiatric: appropriate mood/affect, cooperative - Neurologic Neurologic: CNII-XII intact, moves all extremities HEART Score - HEART Score Troponin: Troponin T < 0.010 ng/mL (0.00-0.029) 03/20/21 10:20 Results - Labs CBC & Chem 7: 03/22/21 07:04 03/22/21 07:04 Labs: Laboratory Last Values WBC 15.2 K/mm3 (4.5-11.0) H 03/22/21 07:04 RBC 5.03 M/mm3 (3.65-5.03) 03/22/21 07:04 Hgb 13.5 gm/dl (10.1-14.3) 03/22/21 07:04 Hct 42.2 % (30.3-42.9) 03/22/21 07:04 MCV 84 fl (79-97) 03/22/21 07:04 MCH 27 pg (28-32) L 03/22/21 07:04 MCHC 32 % (30-34) 03/22/21 07:04 RDW 14.2 % (13.2-15.2) 03/22/21 07:04 Plt Count 207 K/mm3 (140-440) 03/22/21 07:04 Lymph % (Auto) 9.3 % (13.4-35.0) L 03/20/21 10:20 Ralls % (Auto) 6.5 % (0.0-7.3) 03/20/21 10:20 Eos % (Auto) 0.8 % (0.0-4.3) 03/20/21 10:20 Baso % (Auto) 0.9 % (0.0-1.8) 03/20/21 10:20 Lymph # (Auto) 0.6 K/mm3 (1.2-5.4) L 03/20/21 10:20 Ralls # (Auto) 0.4 K/mm3 (0.0-0.8) 03/20/21 10:20 Eos # (Auto) 0.0 K/mm3 (0.0-0.4) 03/20/21 10:20 Baso # (Auto) 0.1 K/mm3 (0.0-0.1) 03/20/21 10:20 Add Manual Diff Complete 03/22/21 07:04 Total Counted 100 03/22/21 07:04 Seg Neutrophils % Executive Rec[employer] 03/22/21 07:04 Seg Neuts % (Manual) 96.0 % (40.0-70.0) H 03/22/21 07:04 Lymphocytes % (Manual) 1.0 % (13.4-35.0) L 03/22/21 07:04 Monocytes % (Manual) 3.0 % (0.0-7.3) 03/22/21 07:04 Nucleated RBC % Not Reportable 03/22/21 07:04 Seg Neutrophils # 5.2 K/mm3 (1.8-7.7) 03/20/21 10:20 Seg Neutrophils # Man 14.6 K/mm3 (1.8-7.7) H 03/22/21 07:04 Band Neutrophils # 0.0 K/mm3 03/22/21 07:04 Lymphocytes # (Manual) 0.2 K/mm3 (1.2-5.4) L 03/22/21 07:04 Abs React Lymphs (Man) 0.0 K/mm3 03/22/21 07:04 Monocytes # (Manual) 0.5 K/mm3 (0.0-0.8) 03/22/21 07:04 Eosinophils # (Manual) 0.0 K/mm3 (0.0-0.4) 03/22/21 07:04 Basophils # (Manual) 0.0 K/mm3 (0.0-0.1) 03/22/21 07:04 Metamyelocytes # 0.0 K/mm3 03/22/21 07:04 Myelocytes # 0.0 K/mm3 03/22/21 07:04 Promyelocytes # 0.0 K/mm3 03/22/21 07:04 Blast Cells # 0.0 K/mm3 03/22/21 07:04 WBC Morphology Not Reportable 03/22/21 07:04 Hypersegmented Neuts Not Reportable 03/22/21 07:04 Hyposegmented Neuts Not Reportable 03/22/21 07:04 Hypogranular Neuts Not Reportable 03/22/21 07:04 Smudge Cells Not Reportable 03/22/21 07:04 Toxic Granulation Not Reportable 03/22/21 07:04 Toxic Vacuolation Not Reportable 03/22/21 07:04 Dohle Bodies Not Reportable 03/22/21 07:04 Pelger-Huet Anomaly Not Reportable 03/22/21 07:04 Yobani Rods Not Reportable 03/22/21 07:04 Platelet Estimate Consistent w auto 03/22/21 07:04 Clumped Platelets Not Reportable 03/22/21 07:04 Plt Clumps, EDTA Not Reportable 03/22/21 07:04 Large Platelets Not Reportable 03/22/21 07:04 Giant Platelets Not Reportable 03/22/21 07:04 Platelet Satelliting Not Reportable 03/22/21 07:04 Plt Morphology Comment Not Reportable 03/22/21 07:04 RBC Morphology Normal 03/22/21 07:04 Dimorphic RBCs Not Reportable 03/22/21 07:04 Polychromasia Not Reportable 03/22/21 07:04 Hypochromasia Not Reportable 03/22/21 07:04 Poikilocytosis Not Reportable 03/22/21 07:04 Anisocytosis Not Reportable 03/22/21 07:04 Microcytosis Not Reportable 03/22/21 07:04 Macrocytosis Not Reportable 03/22/21 07:04 Spherocytes Not Reportable 03/22/21 07:04 Pappenheimer Bodies Not Reportable 03/22/21 07:04 Sickle Cells Not Reportable 03/22/21 07:04 Target Cells Not Reportable 03/22/21 07:04 Tear Drop Cells Not Reportable 03/22/21 07:04 Ovalocytes Not Reportable 03/22/21 07:04 Helmet Cells Not Reportable 03/22/21 07:04 Bains-[place] Bodies Not Reportable 03/22/21 07:04 [place] Rings Not Reportable 03/22/21 07:04 Yunier Cells Not Reportable 03/22/21 07:04 Bite Cells Not Reportable 03/22/21 07:04 Crenated Cell Not Reportable 03/22/21 07:04 Elliptocytes Not Reportable 03/22/21 07:04 Acanthocytes (Spur) Not Reportable 03/22/21 07:04 Rouleaux Not Reportable 03/22/21 07:04 Hemoglobin C Crystals Not Reportable 03/22/21 07:04 Schistocytes Not Reportable 03/22/21 07:04 Malaria parasites Not Reportable 03/22/21 07:04 Aubrey Bodies Not Reportable 03/22/21 07:04 Hem Pathologist Commnt No 03/22/21 07:04 PT 13.1 Sec. (12.2-14.9) 03/20/21 10:20 INR 1.00 (0.87-1.13) 03/20/21 10:20 APTT 27.3 Sec. (24.2-36.6) 03/20/21 10:20 ABG pH 7.360 (7.320-7.450) 03/20/21 15:57 POC ABG pCO2 39.3 mmHg (32.0-48.0) 03/20/21 15:57 POC ABG pO2 87.9 mmHg (83-108) 03/20/21 15:57 POC ABG HCO3 21.7 03/20/21 15:57 ABG O2 Saturation 97.0 (0-100) 03/20/21 15:57 POC ABG Base Excess -3.4 03/20/21 15:57 ABG Hemoglobin 14.3 (12.0-17.5) 03/20/21 15:57 ABG Oxyhemoglobin 95.5 (94-98) 03/20/21 15:57 ABG Methemoglobin 0.3 (0.0-1.5) 03/20/21 15:57 ABG Sodium 141.3 mmol/L (136.0-145.0) 03/20/21 15:57 ABG Potassium 3.6 mmol/L (3.40-4.50) 03/20/21 15:57 ABG Chloride 105.0 mmol/L (98-107) 03/20/21 15:57 ABG Glucose 177 mg/dL (65-95) H 03/20/21 15:57 Carboxyhemoglobin 1.2 (0.5-1.5) 03/20/21 15:57 FiO2 % 35.0 03/20/21 15:57 Sodium 140 mmol/L (137-145) 03/22/21 07:04 Potassium 4.1 mmol/L (3.6-5.0) 03/22/21 07:04 Chloride 103.7 mmol/L (98-107) 03/22/21 07:04 Carbon Dioxide 25 mmol/L (22-30) 03/22/21 07:04 Anion Gap 15 mmol/L 03/22/21 07:04 BUN 16 mg/dL (7-17) 03/22/21 07:04 Creatinine 0.7 mg/dL (0.6-1.2) 03/22/21 07:04 Estimated GFR > 60 ml/min 03/22/21 07:04 BUN/Creatinine Ratio 23 % 03/22/21 07:04 Glucose 155 mg/dL (65-100) H 03/22/21 07:04 POC Glucose 197 mg/dL (70-105) H 03/22/21 11:25 Calcium 9.2 mg/dL (8.4-10.2) 03/22/21 07:04 Total Bilirubin 0.30 mg/dL (0.1-1.2) 03/20/21 10:20 Direct Bilirubin < 0.2 mg/dL (0-0.2) 03/20/21 10:20 AST 16 units/L (5-40) 03/20/21 10:20 ALT 14 units/L (7-56) 03/20/21 10:20 Alkaline Phosphatase 101 units/L (35-129) 03/20/21 10:20 Troponin T < 0.010 ng/mL (0.00-0.029) 03/20/21 10:20 NT-Pro-B Natriuret Pep 109.0 pg/mL (0-900) 03/20/21 10:20 Total Protein 7.5 g/dL (6.3-8.2) 03/20/21 10:20 Albumin 3.7 g/dL (3.9-5) L 03/20/21 10:20 Albumin/Globulin Ratio 1.0 % 03/20/21 10:20 Arterial Blood Glucose 177 mg/dL (65-95) H 03/20/21 15:57 Arterial Blood Ionized Calcium 4.7 mg/dL (4.6-5.3) 03/20/21 15:57 Norman/IV: Voiding Method Bedside Commode Active Medications - Current Medications Current Medications: Generic Name Dose Route Start Last Admin Trade Name Freq PRN Reason Stop Dose Admin Acetaminophen 650 mg 03/20/21 12:39 03/22/21 22:31 Acetaminophen 325 Mg Tab PO 650 mg Q4H PRN Administration Pain MILD(1-3)/Fever >100.5/YOUSIF Albuterol 2.5 mg 03/21/21 12:30 Albuterol 2.5 Mg/3 Ml Nebu IH Q4H PRN Shortness Of Breath Albuterol/Ipratropium 1 ampul 03/21/21 14:00 03/23/21 08:36 Ipratropium/Albuterol Sulfate 3 Ml Ampul.Neb IH 1 ampul Q6HRT REMI Administration Arformoterol Tartrate 15 mcg 03/21/21 20:00 03/23/21 08:36 Arformoterol 15 Mcg/2 Ml Nebu IH 15 mcg Q12HRT REMI Administration Budesonide 0.5 mg 03/21/21 20:00 03/23/21 08:36 Budesonide 0.5 Mg/2 Ml Nebu IH 0.5 mg Q12HRT REMI Administration Cetirizine HCl 10 mg 03/23/21 10:00 03/23/21 09:45 Cetirizine 10 Mg Tab PO 10 mg QDAY REMI Administration Famotidine 10 mg 03/20/21 22:00 03/23/21 09:44 Famotidine 10 Mg Tab PO 10 mg BID REMI Administration Furosemide 40 mg 03/23/21 10:00 03/23/21 09:45 Furosemide 40 Mg/4 Ml Inj IV 40 mg QDAY REMI Administration HCTZ/Irbesartan 1 each 03/22/21 16:00 03/23/21 09:55 Irbesartan/Hydrochlorothiazide (Nf) 300-12.5mg Tab PO 1 each DAILY REMI Administration Levofloxacin/Dextrose 750 mg in 150 mls @ 100 mls/hr 03/22/21 17:00 03/22/21 17:40 Levaquin 750mg/150ml IV 100 mls/hr Q24H REMI Administration Protocol Methylprednisolone Sodium Succinate 40 mg 03/20/21 22:00 03/23/21 05:44 Methylprednisolone Sod Succinate 40 Mg/1 Ml Inj IV 40 mg Q8HR REMI Administration Ondansetron HCl 4 mg 03/20/21 12:39 Ondansetron 4 Mg/2 Ml Inj IV Q8H PRN Nausea And Vomiting Sertraline HCl 25 mg 03/20/21 15:00 03/23/21 09:45 Sertraline 25 Mg Tab PO 25 mg QDAY REMI Administration Sodium Chloride 10 ml 03/20/21 22:00 03/22/21 22:02 Sodium Chloride 0.9% 10 Ml Flush Syringe IV 10 ml BID REMI Administration Sodium Chloride 10 ml 03/20/21 12:39 Sodium Chloride 0.9% 10 Ml Flush Syringe IV PRN PRN LINE FLUSH
[2021-03-23] MEDS ORDERED: hydrALAZINE 20 MG/1 ML INJ IV PRN (12:57)
[2021-03-23] MEDS: hydrALAZINE 10 MG TAB PO SCH ×2 (13:59→22:22)
[2021-03-24] MEDS: IPRATROPIUM/ALBUTEROL SULFATE 3 ML AMPUL.NEB IH SCH ×4 (01:17→21:17)
[2021-03-24] MEDS: methylPREDNISolone Sod Succinate 40 MG/1 ML INJ IV SCH ×2 (05:22→15:10)
[2021-03-24] MEDS: hydrALAZINE 10 MG TAB PO SCH ×3 (05:23→22:51)
[2021-03-24] MEDS: ARFORMOTEROL 15 MCG/2 ML NEBU IH SCH ×2 (08:49→21:16)
[2021-03-24] MEDS: BUDESONIDE 0.5 MG/2 ML NEBU IH SCH ×2 (08:49→21:17)
[2021-03-24] MEDS: SERTRALINE 25 MG TAB PO SCH (10:52)
[2021-03-24] MEDS: FUROSEMIDE 40 MG/4 ML INJ IV SCH (10:52)
[2021-03-24] MEDS: FAMOTIDINE 10 MG TAB PO SCH ×2 (10:52→22:51)
[2021-03-24] MEDS: CETIRIZINE 10 MG TAB PO SCH (10:53)
[2021-03-24] MEDS: IRBESARTAN PO SCH (10:54)
[2021-03-24] MEDS: HYDROCHLOROTHIAZIDE PO SCH (10:54)
--- NOTE | 2021-03-24 17:52 | Progress Note ---
Assessment and Plan Assessment and plan: --Acute exacerbation of bronchial asthma oxygen titrate O2 sats to more than 90% nebulizer therapy, tapering doses of IV steroids, and IV Levaquin Inhalation steroids, supportive care Antihistamine, DC Lasix, antibiotics and supportive care --Acute hypoxic respiratory failure; requiring BiPAP and supplemental oxygen on admission Titrate and DC O2 as tolerated Home O2 evaluation before discharge --Obesity; BMI 31.9 Lifestyle changes, dietary modification exercise as tolerated When medically stable, increase physical activity discharge, outpatient pulmonary follow-up for sleep study. To evaluate for MENA --Accelerated hypertension Monitor blood pressure every shift, continue medical management. Blood pressures on the lower range --Advance care planning disease education conducted, care plan discussed, diagnosis discussed, prognosis discussed, patient is full code. Patient acknowledges understanding agree with care plan, +30 minutes. --DVT prophylaxis SCD to bilateral lower extremities while in bed, patient is ambulatory. Closely monitor patient and adjust management as needed Plan of care reviewed with the patient and her nurse 03/22/2021; antihistamine, IV antibiotic, IV Lasix regimen Tapering dose of steroids, consult pulmonary if needed 03/23/2021; feels slightly better, PT evaluation and recommendations Home O2 evaluation and set up if needed along with home health services Possible discharge tomorrow if stable 03/24/2021; patient feels slightly better Blood pressures in the lower range History Interval history: I have seen and examined the patient at the bedside Patient's chart and medications reviewed No new events reported by the nursing staff Patient is comfortable breathing room air 94% mild wheeze and shortness of breath Vital signs reviewed Hospitalist Physical - Constitutional Vitals: Temp Pulse Resp BP Pulse Ox 97.7 F 77 18 99/78 96 03/24/21 16:28 03/24/21 16:28 03/24/21 16:28 03/24/21 16:28 03/24/21 16:28 General appearance: Present: mild distress, well-nourished, obese, other (Audible wheeze) - EENT Eyes: Present: PERRL, EOM intact - Neck Neck: Present: supple, normal ROM - Respiratory Respiratory effort: normal Respiratory: bilateral: diminished, negative: rales, rhonchi, wheezing - Cardiovascular Rhythm: regular Heart Sounds: Present: S1 & S2 - Extremities Extremities: no ischemia, No edema - Abdominal General gastrointestinal: soft, non-tender, non-distended, normal bowel sounds - Integumentary Integumentary: Present: clear, warm - Psychiatric Psychiatric: appropriate mood/affect - Neurologic Neurologic: CNII-XII intact HEART Score - HEART Score Troponin: Troponin T < 0.010 ng/mL (0.00-0.029) 03/20/21 10:20 Results - Labs CBC & Chem 7: 03/22/21 07:04 03/22/21 07:04 Labs: Laboratory Last Values WBC 15.2 K/mm3 (4.5-11.0) H 03/22/21 07:04 RBC 5.03 M/mm3 (3.65-5.03) 03/22/21 07:04 Hgb 13.5 gm/dl (10.1-14.3) 03/22/21 07:04 Hct 42.2 % (30.3-42.9) 03/22/21 07:04 MCV 84 fl (79-97) 03/22/21 07:04 MCH 27 pg (28-32) L 03/22/21 07:04 MCHC 32 % (30-34) 03/22/21 07:04 RDW 14.2 % (13.2-15.2) 03/22/21 07:04 Plt Count 207 K/mm3 (140-440) 03/22/21 07:04 Lymph % (Auto) 9.3 % (13.4-35.0) L 03/20/21 10:20 [place] % (Auto) 6.5 % (0.0-7.3) 03/20/21 10:20 Eos % (Auto) 0.8 % (0.0-4.3) 03/20/21 10:20 Baso % (Auto) 0.9 % (0.0-1.8) 03/20/21 10:20 Lymph # (Auto) 0.6 K/mm3 (1.2-5.4) L 03/20/21 10:20 [place] # (Auto) 0.4 K/mm3 (0.0-0.8) 03/20/21 10:20 Eos # (Auto) 0.0 K/mm3 (0.0-0.4) 03/20/21 10:20 Baso # (Auto) 0.1 K/mm3 (0.0-0.1) 03/20/21 10:20 Add Manual Diff Complete 03/22/21 07:04 Total Counted 100 03/22/21 07:04 Seg Neutrophils % Shop Assistant 03/22/21 07:04 Seg Neuts % (Manual) 96.0 % (40.0-70.0) H 03/22/21 07:04 Lymphocytes % (Manual) 1.0 % (13.4-35.0) L 03/22/21 07:04 Monocytes % (Manual) 3.0 % (0.0-7.3) 03/22/21 07:04 Nucleated RBC % Not Reportable 03/22/21 07:04 Seg Neutrophils # 5.2 K/mm3 (1.8-7.7) 03/20/21 10:20 Seg Neutrophils # Man 14.6 K/mm3 (1.8-7.7) H 03/22/21 07:04 Band Neutrophils # 0.0 K/mm3 03/22/21 07:04 Lymphocytes # (Manual) 0.2 K/mm3 (1.2-5.4) L 03/22/21 07:04 Abs React Lymphs (Man) 0.0 K/mm3 03/22/21 07:04 Monocytes # (Manual) 0.5 K/mm3 (0.0-0.8) 03/22/21 07:04 Eosinophils # (Manual) 0.0 K/mm3 (0.0-0.4) 03/22/21 07:04 Basophils # (Manual) 0.0 K/mm3 (0.0-0.1) 03/22/21 07:04 Metamyelocytes # 0.0 K/mm3 03/22/21 07:04 Myelocytes # 0.0 K/mm3 03/22/21 07:04 Promyelocytes # 0.0 K/mm3 03/22/21 07:04 Blast Cells # 0.0 K/mm3 03/22/21 07:04 WBC Morphology Not Reportable 03/22/21 07:04 Hypersegmented Neuts Not Reportable 03/22/21 07:04 Hyposegmented Neuts Not Reportable 03/22/21 07:04 Hypogranular Neuts Not Reportable 03/22/21 07:04 Smudge Cells Not Reportable 03/22/21 07:04 Toxic Granulation Not Reportable 03/22/21 07:04 Toxic Vacuolation Not Reportable 03/22/21 07:04 Dohle Bodies Not Reportable 03/22/21 07:04 Pelger-Huet Anomaly Not Reportable 03/22/21 07:04 Yobani Rods Not Reportable 03/22/21 07:04 Platelet Estimate Consistent w auto 03/22/21 07:04 Clumped Platelets Not Reportable 03/22/21 07:04 Plt Clumps, EDTA Not Reportable 03/22/21 07:04 Large Platelets Not Reportable 03/22/21 07:04 Giant Platelets Not Reportable 03/22/21 07:04 Platelet Satelliting Not Reportable 03/22/21 07:04 Plt Morphology Comment Not Reportable 03/22/21 07:04 RBC Morphology Normal 03/22/21 07:04 Dimorphic RBCs Not Reportable 03/22/21 07:04 Polychromasia Not Reportable 03/22/21 07:04 Hypochromasia Not Reportable 03/22/21 07:04 Poikilocytosis Not Reportable 03/22/21 07:04 Anisocytosis Not Reportable 03/22/21 07:04 Microcytosis Not Reportable 03/22/21 07:04 Macrocytosis Not Reportable 03/22/21 07:04 Spherocytes Not Reportable 03/22/21 07:04 Pappenheimer Bodies Not Reportable 03/22/21 07:04 Sickle Cells Not Reportable 03/22/21 07:04 Target Cells Not Reportable 03/22/21 07:04 Tear Drop Cells Not Reportable 03/22/21 07:04 Ovalocytes Not Reportable 03/22/21 07:04 Helmet Cells Not Reportable 03/22/21 07:04 [place] Bodies Not Reportable 03/22/21 07:04 [place] Rings Not Reportable 03/22/21 07:04 Yunier Cells Not Reportable 03/22/21 07:04 Bite Cells Not Reportable 03/22/21 07:04 Crenated Cell Not Reportable 03/22/21 07:04 Elliptocytes Not Reportable 03/22/21 07:04 Acanthocytes (Spur) Not Reportable 03/22/21 07:04 Rouleaux Not Reportable 03/22/21 07:04 Hemoglobin C Crystals Not Reportable 03/22/21 07:04 Schistocytes Not Reportable 03/22/21 07:04 Malaria parasites Not Reportable 03/22/21 07:04 Aubrey Bodies Not Reportable 03/22/21 07:04 Hem Pathologist Commnt No 03/22/21 07:04 PT 13.1 Sec. (12.2-14.9) 03/20/21 10:20 INR 1.00 (0.87-1.13) 03/20/21 10:20 APTT 27.3 Sec. (24.2-36.6) 03/20/21 10:20 ABG pH 7.360 (7.320-7.450) 03/20/21 15:57 POC ABG pCO2 39.3 mmHg (32.0-48.0) 03/20/21 15:57 POC ABG pO2 87.9 mmHg (83-108) 03/20/21 15:57 POC ABG HCO3 21.7 03/20/21 15:57 ABG O2 Saturation 97.0 (0-100) 03/20/21 15:57 POC ABG Base Excess -3.4 03/20/21 15:57 ABG Hemoglobin 14.3 (12.0-17.5) 03/20/21 15:57 ABG Oxyhemoglobin 95.5 (94-98) 03/20/21 15:57 ABG Methemoglobin 0.3 (0.0-1.5) 03/20/21 15:57 ABG Sodium 141.3 mmol/L (136.0-145.0) 03/20/21 15:57 ABG Potassium 3.6 mmol/L (3.40-4.50) 03/20/21 15:57 ABG Chloride 105.0 mmol/L (98-107) 03/20/21 15:57 ABG Glucose 177 mg/dL (65-95) H 03/20/21 15:57 Carboxyhemoglobin 1.2 (0.5-1.5) 03/20/21 15:57 FiO2 % 35.0 03/20/21 15:57 Sodium 140 mmol/L (137-145) 03/22/21 07:04 Potassium 4.1 mmol/L (3.6-5.0) 03/22/21 07:04 Chloride 103.7 mmol/L (98-107) 03/22/21 07:04 Carbon Dioxide 25 mmol/L (22-30) 03/22/21 07:04 Anion Gap 15 mmol/L 03/22/21 07:04 BUN 16 mg/dL (7-17) 03/22/21 07:04 Creatinine 0.7 mg/dL (0.6-1.2) 03/22/21 07:04 Estimated GFR > 60 ml/min 03/22/21 07:04 BUN/Creatinine Ratio 23 % 03/22/21 07:04 Glucose 155 mg/dL (65-100) H 03/22/21 07:04 POC Glucose 139 mg/dL (70-105) H 03/24/21 16:36 Calcium 9.2 mg/dL (8.4-10.2) 03/22/21 07:04 Total Bilirubin 0.30 mg/dL (0.1-1.2) 03/20/21 10:20 Direct Bilirubin < 0.2 mg/dL (0-0.2) 03/20/21 10:20 AST 16 units/L (5-40) 03/20/21 10:20 ALT 14 units/L (7-56) 03/20/21 10:20 Alkaline Phosphatase 101 units/L (35-129) 03/20/21 10:20 Troponin T < 0.010 ng/mL (0.00-0.029) 03/20/21 10:20 NT-Pro-B Natriuret Pep 109.0 pg/mL (0-900) 03/20/21 10:20 Total Protein 7.5 g/dL (6.3-8.2) 03/20/21 10:20 Albumin 3.7 g/dL (3.9-5) L 03/20/21 10:20 Albumin/Globulin Ratio 1.0 % 03/20/21 10:20 Arterial Blood Glucose 177 mg/dL (65-95) H 03/20/21 15:57 Arterial Blood Ionized Calcium 4.7 mg/dL (4.6-5.3) 03/20/21 15:57 Norman/IV: Voiding Method Bedside Commode Active Medications - Current Medications Current Medications: Generic Name Dose Route Start Last Admin Trade Name Freq PRN Reason Stop Dose Admin Acetaminophen 650 mg 03/20/21 12:39 03/22/21 22:31 Acetaminophen 325 Mg Tab PO 650 mg Q4H PRN Administration Pain MILD(1-3)/Fever >100.5/YOUSIF Albuterol 2.5 mg 03/21/21 12:30 Albuterol 2.5 Mg/3 Ml Nebu IH Q4H PRN Shortness Of Breath Albuterol/Ipratropium 1 ampul 03/21/21 14:00 03/24/21 14:04 Ipratropium/Albuterol Sulfate 3 Ml Ampul.Neb IH 1 ampul Q6HRT REMI Administration Arformoterol Tartrate 15 mcg 03/21/21 20:00 03/24/21 08:49 Arformoterol 15 Mcg/2 Ml Nebu IH 15 mcg Q12HRT REMI Administration Budesonide 0.5 mg 03/21/21 20:00 03/24/21 08:49 Budesonide 0.5 Mg/2 Ml Nebu IH 0.5 mg Q12HRT REMI Administration Cetirizine HCl 10 mg 03/23/21 10:00 03/24/21 10:53 Cetirizine 10 Mg Tab PO 10 mg QDAY REMI Administration Famotidine 10 mg 03/20/21 22:00 03/24/21 10:52 Famotidine 10 Mg Tab PO 10 mg BID REMI Administration Furosemide 40 mg 03/23/21 10:00 03/24/21 10:52 Furosemide 40 Mg/4 Ml Inj IV 40 mg QDAY REMI Administration HCTZ/Irbesartan 1 each 03/22/21 16:00 03/24/21 10:54 Irbesartan/Hydrochlorothiazide (Nf) 300-12.5mg Tab PO 1 each DAILY REMI Administration Hydralazine HCl 10 mg 03/23/21 14:00 03/24/21 15:10 Hydralazine 10 Mg Tab PO 10 mg Q8HR REMI Administration Hydralazine HCl 10 mg 03/23/21 12:57 Hydralazine 20 Mg/1 Ml Inj IV Q4HR PRN Hypertension Levofloxacin/Dextrose 750 mg in 150 mls @ 100 mls/hr 03/22/21 17:00 03/24/21 17:15 Levaquin 750mg/150ml IV 100 mls/hr Q24H REMI Administration Protocol Methylprednisolone Sodium Succinate 40 mg 03/20/21 22:00 03/24/21 15:10 Methylprednisolone Sod Succinate 40 Mg/1 Ml Inj IV 40 mg Q8HR REMI Administration Ondansetron HCl 4 mg 03/20/21 12:39 Ondansetron 4 Mg/2 Ml Inj IV Q8H PRN Nausea And Vomiting Sertraline HCl 25 mg 03/20/21 15:00 03/24/21 10:52 Sertraline 25 Mg Tab PO Not Given QDAY REMI Sodium Chloride 10 ml 03/20/21 22:00 03/24/21 10:54 Sodium Chloride 0.9% 10 Ml Flush Syringe IV 10 ml BID REMI Administration Sodium Chloride 10 ml 03/20/21 12:39 Sodium Chloride 0.9% 10 Ml Flush Syringe IV PRN PRN LINE FLUSH
[2021-03-24] MEDS ORDERED: SODIUM CHLORIDE 0.9% 250ML 250 ML IV ONE (18:03)
[2021-03-25] MEDS: ACETAMINOPHEN 325 MG TAB PO PRN (00:53)
[2021-03-25] MEDS: methylPREDNISolone Sod Succinate 40 MG/1 ML INJ IV SCH ×4 (00:54→22:06)
[2021-03-25] MEDS: IPRATROPIUM/ALBUTEROL SULFATE 3 ML AMPUL.NEB IH SCH ×3 (02:27→22:32)
[2021-03-25] MEDS: hydrALAZINE 10 MG TAB PO SCH ×3 (05:56→23:58)
[2021-03-25] MEDS: HYDROCHLOROTHIAZIDE PO SCH (09:43)
[2021-03-25] MEDS: CETIRIZINE 10 MG TAB PO SCH (09:43)
[2021-03-25] MEDS: IRBESARTAN PO SCH (09:43)
[2021-03-25] MEDS: FAMOTIDINE 10 MG TAB PO SCH ×2 (09:44→22:05)
[2021-03-25] MEDS: SERTRALINE 25 MG TAB PO SCH (09:46)
[2021-03-25] MEDS: levoFLOXacin 750 MG TAB PO SCH (13:15)
--- NOTE | 2021-03-25 15:18 | Progress Note ---
Assessment and Plan Assessment and plan: --Acute exacerbation of bronchial asthma oxygen titrate O2 sats to more than 90% nebulizer therapy, tapering doses of IV steroids, and IV Levaquin Inhalation steroids, supportive care Antihistamine, DC Lasix, antibiotics and supportive care --Acute hypoxic respiratory failure; requiring BiPAP and supplemental oxygen on admission Titrate and DC O2 as tolerated Home O2 evaluation before discharge --Obesity; BMI 31.9 Lifestyle changes, dietary modification exercise as tolerated When medically stable, increase physical activity discharge, outpatient pulmonary follow-up for sleep study. To evaluate for MENA --Accelerated hypertension Monitor blood pressure every shift, continue medical management. Blood pressures on the lower range --Advance care planning disease education conducted, care plan discussed, diagnosis discussed, prognosis discussed, patient is full code. Patient acknowledges understanding agree with care plan, +30 minutes. --DVT prophylaxis SCD to bilateral lower extremities while in bed, patient is ambulatory. Closely monitor patient and adjust management as needed Plan of care reviewed with the patient and her nurse 03/22/2021; antihistamine, IV antibiotic, IV Lasix regimen Tapering dose of steroids, consult pulmonary if needed 03/23/2021; feels slightly better, PT evaluation and recommendations Home O2 evaluation and set up if needed along with home health services Possible discharge tomorrow if stable 03/24/2021; patient feels slightly better Blood pressures in the lower range 03/25/2021; patient feels slightly better, increase ambulation Lasix discontinued, possible discharge home tomorrow Home O2 evaluation prior to discharge History Interval history: I have seen and examined the patient at the bedside Patient's chart and medications reviewed Patient feels slightly better, complains of some dizziness, and lightheadedness Mild shortness of breath, denies chest pain Vital signs noted Hospitalist Physical - Constitutional Vitals: Temp Pulse Resp BP Pulse Ox 98.3 F 92 H 21 109/67 92 03/25/21 13:13 03/25/21 14:00 03/25/21 14:00 03/25/21 13:13 03/25/21 14:00 General appearance: Present: mild distress, well-nourished, obese, other (Audible wheeze) - EENT Eyes: Present: PERRL, EOM intact - Neck Neck: Present: supple, normal ROM - Respiratory Respiratory effort: normal Respiratory: bilateral: diminished, negative: rales, rhonchi, wheezing - Cardiovascular Rhythm: regular Heart Sounds: Present: S1 & S2 - Extremities Extremities: no ischemia, No edema - Abdominal General gastrointestinal: soft, non-tender, non-distended, normal bowel sounds - Integumentary Integumentary: Present: clear, warm - Psychiatric Psychiatric: appropriate mood/affect, cooperative - Neurologic Neurologic: CNII-XII intact, moves all extremities HEART Score - HEART Score Troponin: Troponin T < 0.010 ng/mL (0.00-0.029) 03/20/21 10:20 Results - Labs CBC & Chem 7: 03/22/21 07:04 03/22/21 07:04 Labs: Laboratory Last Values WBC 15.2 K/mm3 (4.5-11.0) H 03/22/21 07:04 RBC 5.03 M/mm3 (3.65-5.03) 03/22/21 07:04 Hgb 13.5 gm/dl (10.1-14.3) 03/22/21 07:04 Hct 42.2 % (30.3-42.9) 03/22/21 07:04 MCV 84 fl (79-97) 03/22/21 07:04 MCH 27 pg (28-32) L 03/22/21 07:04 MCHC 32 % (30-34) 03/22/21 07:04 RDW 14.2 % (13.2-15.2) 03/22/21 07:04 Plt Count 207 K/mm3 (140-440) 03/22/21 07:04 Lymph % (Auto) 9.3 % (13.4-35.0) L 03/20/21 10:20 [place] % (Auto) 6.5 % (0.0-7.3) 03/20/21 10:20 Eos % (Auto) 0.8 % (0.0-4.3) 03/20/21 10:20 Baso % (Auto) 0.9 % (0.0-1.8) 03/20/21 10:20 Lymph # (Auto) 0.6 K/mm3 (1.2-5.4) L 03/20/21 10:20 [place] # (Auto) 0.4 K/mm3 (0.0-0.8) 03/20/21 10:20 Eos # (Auto) 0.0 K/mm3 (0.0-0.4) 03/20/21 10:20 Baso # (Auto) 0.1 K/mm3 (0.0-0.1) 03/20/21 10:20 Add Manual Diff Complete 03/22/21 07:04 Total Counted 100 03/22/21 07:04 Seg Neutrophils % Dry [place] R[place] 03/22/21 07:04 Seg Neuts % (Manual) 96.0 % (40.0-70.0) H 03/22/21 07:04 Lymphocytes % (Manual) 1.0 % (13.4-35.0) L 03/22/21 07:04 Monocytes % (Manual) 3.0 % (0.0-7.3) 03/22/21 07:04 Nucleated RBC % Not Reportable 03/22/21 07:04 Seg Neutrophils # 5.2 K/mm3 (1.8-7.7) 03/20/21 10:20 Seg Neutrophils # Man 14.6 K/mm3 (1.8-7.7) H 03/22/21 07:04 Band Neutrophils # 0.0 K/mm3 03/22/21 07:04 Lymphocytes # (Manual) 0.2 K/mm3 (1.2-5.4) L 03/22/21 07:04 Abs React Lymphs (Man) 0.0 K/mm3 03/22/21 07:04 Monocytes # (Manual) 0.5 K/mm3 (0.0-0.8) 03/22/21 07:04 Eosinophils # (Manual) 0.0 K/mm3 (0.0-0.4) 03/22/21 07:04 Basophils # (Manual) 0.0 K/mm3 (0.0-0.1) 03/22/21 07:04 Metamyelocytes # 0.0 K/mm3 03/22/21 07:04 Myelocytes # 0.0 K/mm3 03/22/21 07:04 Promyelocytes # 0.0 K/mm3 03/22/21 07:04 Blast Cells # 0.0 K/mm3 03/22/21 07:04 WBC Morphology Not Reportable 03/22/21 07:04 Hypersegmented Neuts Not Reportable 03/22/21 07:04 Hyposegmented Neuts Not Reportable 03/22/21 07:04 Hypogranular Neuts Not Reportable 03/22/21 07:04 Smudge Cells Not Reportable 03/22/21 07:04 Toxic Granulation Not Reportable 03/22/21 07:04 Toxic Vacuolation Not Reportable 03/22/21 07:04 Dohle Bodies Not Reportable 03/22/21 07:04 Pelger-Huet Anomaly Not Reportable 03/22/21 07:04 Yobani Rods Not Reportable 03/22/21 07:04 Platelet Estimate Consistent w auto 03/22/21 07:04 Clumped Platelets Not Reportable 03/22/21 07:04 Plt Clumps, EDTA Not Reportable 03/22/21 07:04 Large Platelets Not Reportable 03/22/21 07:04 Giant Platelets Not Reportable 03/22/21 07:04 Platelet Satelliting Not Reportable 03/22/21 07:04 Plt Morphology Comment Not Reportable 03/22/21 07:04 RBC Morphology Normal 03/22/21 07:04 Dimorphic RBCs Not Reportable 03/22/21 07:04 Polychromasia Not Reportable 03/22/21 07:04 Hypochromasia Not Reportable 03/22/21 07:04 Poikilocytosis Not Reportable 03/22/21 07:04 Anisocytosis Not Reportable 03/22/21 07:04 Microcytosis Not Reportable 03/22/21 07:04 Macrocytosis Not Reportable 03/22/21 07:04 Spherocytes Not Reportable 03/22/21 07:04 Pappenheimer Bodies Not Reportable 03/22/21 07:04 Sickle Cells Not Reportable 03/22/21 07:04 Target Cells Not Reportable 03/22/21 07:04 Tear Drop Cells Not Reportable 03/22/21 07:04 Ovalocytes Not Reportable 03/22/21 07:04 Helmet Cells Not Reportable 03/22/21 07:04 [place] Bodies Not Reportable 03/22/21 07:04 [place] Rings Not Reportable 03/22/21 07:04 Yunier Cells Not Reportable 03/22/21 07:04 Bite Cells Not Reportable 03/22/21 07:04 Crenated Cell Not Reportable 03/22/21 07:04 Elliptocytes Not Reportable 03/22/21 07:04 Acanthocytes (Spur) Not Reportable 03/22/21 07:04 Rouleaux Not Reportable 03/22/21 07:04 Hemoglobin C Crystals Not Reportable 03/22/21 07:04 Schistocytes Not Reportable 03/22/21 07:04 Malaria parasites Not Reportable 03/22/21 07:04 Aubrey Bodies Not Reportable 03/22/21 07:04 Hem Pathologist Commnt No 03/22/21 07:04 PT 13.1 Sec. (12.2-14.9) 03/20/21 10:20 INR 1.00 (0.87-1.13) 03/20/21 10:20 APTT 27.3 Sec. (24.2-36.6) 03/20/21 10:20 ABG pH 7.360 (7.320-7.450) 03/20/21 15:57 POC ABG pCO2 39.3 mmHg (32.0-48.0) 03/20/21 15:57 POC ABG pO2 87.9 mmHg (83-108) 03/20/21 15:57 POC ABG HCO3 21.7 03/20/21 15:57 ABG O2 Saturation 97.0 (0-100) 03/20/21 15:57 POC ABG Base Excess -3.4 03/20/21 15:57 ABG Hemoglobin 14.3 (12.0-17.5) 03/20/21 15:57 ABG Oxyhemoglobin 95.5 (94-98) 03/20/21 15:57 ABG Methemoglobin 0.3 (0.0-1.5) 03/20/21 15:57 ABG Sodium 141.3 mmol/L (136.0-145.0) 03/20/21 15:57 ABG Potassium 3.6 mmol/L (3.40-4.50) 03/20/21 15:57 ABG Chloride 105.0 mmol/L (98-107) 03/20/21 15:57 ABG Glucose 177 mg/dL (65-95) H 03/20/21 15:57 Carboxyhemoglobin 1.2 (0.5-1.5) 03/20/21 15:57 FiO2 % 35.0 03/20/21 15:57 Sodium 140 mmol/L (137-145) 03/22/21 07:04 Potassium 4.1 mmol/L (3.6-5.0) 03/22/21 07:04 Chloride 103.7 mmol/L (98-107) 03/22/21 07:04 Carbon Dioxide 25 mmol/L (22-30) 03/22/21 07:04 Anion Gap 15 mmol/L 03/22/21 07:04 BUN 16 mg/dL (7-17) 03/22/21 07:04 Creatinine 0.7 mg/dL (0.6-1.2) 03/22/21 07:04 Estimated GFR > 60 ml/min 03/22/21 07:04 BUN/Creatinine Ratio 23 % 03/22/21 07:04 Glucose 155 mg/dL (65-100) H 03/22/21 07:04 POC Glucose 139 mg/dL (70-105) H 03/24/21 16:36 Calcium 9.2 mg/dL (8.4-10.2) 03/22/21 07:04 Total Bilirubin 0.30 mg/dL (0.1-1.2) 03/20/21 10:20 Direct Bilirubin < 0.2 mg/dL (0-0.2) 03/20/21 10:20 AST 16 units/L (5-40) 03/20/21 10:20 ALT 14 units/L (7-56) 03/20/21 10:20 Alkaline Phosphatase 101 units/L (35-129) 03/20/21 10:20 Troponin T < 0.010 ng/mL (0.00-0.029) 03/20/21 10:20 NT-Pro-B Natriuret Pep 109.0 pg/mL (0-900) 03/20/21 10:20 Total Protein 7.5 g/dL (6.3-8.2) 03/20/21 10:20 Albumin 3.7 g/dL (3.9-5) L 03/20/21 10:20 Albumin/Globulin Ratio 1.0 % 03/20/21 10:20 Arterial Blood Glucose 177 mg/dL (65-95) H 03/20/21 15:57 Arterial Blood Ionized Calcium 4.7 mg/dL (4.6-5.3) 03/20/21 15:57 Norman/IV: Voiding Method Toilet Active Medications - Current Medications Current Medications: Generic Name Dose Route Start Last Admin Trade Name Freq PRN Reason Stop Dose Admin Acetaminophen 650 mg 03/20/21 12:39 03/25/21 00:53 Acetaminophen 325 Mg Tab PO 650 mg Q4H PRN Administration Pain MILD(1-3)/Fever >100.5/YOUSIF Albuterol 2.5 mg 03/21/21 12:30 Albuterol 2.5 Mg/3 Ml Nebu IH Q4H PRN Shortness Of Breath Albuterol/Ipratropium 1 ampul 03/21/21 14:00 03/25/21 02:27 Ipratropium/Albuterol Sulfate 3 Ml Ampul.Neb IH 1 ampul Q6HRT REMI Administration Arformoterol Tartrate 15 mcg 03/21/21 20:00 03/24/21 21:16 Arformoterol 15 Mcg/2 Ml Nebu IH Not Given Q12HRT REMI Budesonide 0.5 mg 03/21/21 20:00 03/24/21 21:17 Budesonide 0.5 Mg/2 Ml Nebu IH Not Given Q12HRT REMI Cetirizine HCl 10 mg 03/23/21 10:00 03/25/21 09:43 Cetirizine 10 Mg Tab PO 10 mg QDAY REMI Administration Famotidine 10 mg 03/20/21 22:00 03/25/21 09:44 Famotidine 10 Mg Tab PO 10 mg BID REMI Administration HCTZ/Irbesartan 1 each 03/22/21 16:00 03/25/21 09:43 Irbesartan/Hydrochlorothiazide (Nf) 300-12.5mg Tab PO 1 each DAILY REMI Administration Hydralazine HCl 10 mg 03/23/21 14:00 03/25/21 13:15 Hydralazine 10 Mg Tab PO Not Given Q8HR REMI Hydralazine HCl 10 mg 03/23/21 12:57 Hydralazine 20 Mg/1 Ml Inj IV Q4HR PRN Hypertension Levofloxacin 750 mg 03/25/21 13:00 03/25/21 13:15 Levofloxacin 750 Mg Tab PO 03/26/21 10:01 750 mg Q24HR REMI Administration Protocol Methylprednisolone Sodium Succinate 40 mg 03/20/21 22:00 03/25/21 13:15 Methylprednisolone Sod Succinate 40 Mg/1 Ml Inj IV 40 mg Q8HR REMI Administration Ondansetron HCl 4 mg 03/20/21 12:39 Ondansetron 4 Mg/2 Ml Inj IV Q8H PRN Nausea And Vomiting Sertraline HCl 25 mg 03/20/21 15:00 03/25/21 09:46 Sertraline 25 Mg Tab PO Not Given QDAY REMI Sodium Chloride 10 ml 03/20/21 22:00 03/25/21 09:46 Sodium Chloride 0.9% 10 Ml Flush Syringe IV 10 ml BID REMI Administration Sodium Chloride 10 ml 03/20/21 12:39 Sodium Chloride 0.9% 10 Ml Flush Syringe IV PRN PRN LINE FLUSH
[2021-03-25] MEDS: ARFORMOTEROL 15 MCG/2 ML NEBU IH SCH ×2 (21:25→22:31)
[2021-03-25] MEDS: BUDESONIDE 0.5 MG/2 ML NEBU IH SCH ×2 (21:25→22:32)
[2021-03-26] MEDS: IPRATROPIUM/ALBUTEROL SULFATE 3 ML AMPUL.NEB IH SCH ×3 (03:53→15:21)
[2021-03-26] MEDS: methylPREDNISolone Sod Succinate 40 MG/1 ML INJ IV SCH ×2 (05:06→15:21)
[2021-03-26] MEDS: hydrALAZINE 10 MG TAB PO SCH ×2 (05:48→15:21)
[2021-03-26] MEDS: BUDESONIDE 0.5 MG/2 ML NEBU IH SCH (09:52)
[2021-03-26] MEDS: ARFORMOTEROL 15 MCG/2 ML NEBU IH SCH (09:54)
[2021-03-26] MEDS: levoFLOXacin 750 MG TAB PO SCH (10:17)
[2021-03-26] MEDS: SERTRALINE 25 MG TAB PO SCH (10:17)
[2021-03-26] MEDS: HYDROCHLOROTHIAZIDE PO SCH (10:18)
[2021-03-26] MEDS: IRBESARTAN PO SCH (10:18)
[2021-03-26] MEDS: CETIRIZINE 10 MG TAB PO SCH (10:18)
[2021-03-26] MEDS: FAMOTIDINE 10 MG TAB PO SCH (10:18)
--- NOTE | 2021-03-26 11:53 | Discharge Summary ---
Providers - Providers Date of Admission: 03/21/21 16:55 Date of discharge: 03/26/21 Attending physician: HAO BUCKLEY 03/23/21 13:27 Physical Therapy Evaluation and Treat [CONS] Stat Comment: Reason For Exam: eval and treat 03/23/21 13:28 Occupational Therapy Evaluate and Treat [CONS] Stat Comment: Reason For Exam: eval and treat Primary care physician: DIRECTOR OF OUTPATIENT SERVICES Hospitalization Reason for admission: Worsening shortness of breath Condition: Stable Pertinent studies: Chest x-ray; no acute abnormality Hospital course: 60-year-old female patient with significant past medical history of hypertension bronchial asthma osteoarthritis was admitted through emergency room with worsening shortness of breath, initial evaluation is consistent with acute hypoxic respiratory failure, requiring BiPAP, managed with oxygen titrate O2 sats to more than 90%, nebulizers, tapering dose of IV steroids and IV antibiotics. Patient symptoms slowly but gradually improved. Patient's blood pressures closely monitored medications optimized. Patient symptoms slowly but gradually improved. Today patient is comfortable no new complaints vital signs stable Physical examination prior to discharge no new findings. Stable at discharge Discharge diagnosis: --Acute exacerbation of bronchial asthma oxygen titrate O2 sats to more than 90% nebulizer therapy, tapering doses of IV steroids, and IV Levaquin --Acute on chronic hypoxic respiratory failure; requiring BiPAP and supplemental oxygen on admission Symptoms significantly improved Home O2 evaluation/no need for home oxygen --Obesity; BMI 31.9 Lifestyle changes, dietary modification exercise as tolerated Weight reduction when medically stable --Accelerated hypertension Monitor blood pressure every shift, continue medical management. Blood pressures well controlled Stable at discharge Disposition: [id number] HOME UNDER HOME [facility] Final Discharge Diagnosis (Prints w/discharge instructions): Acute on chronic hypoxic respiratory failure. Acute exacerbation of bronchial asthma. Accelerated hypertension. Hyperglycemia. Obesity BMI 31.9 Time spent for discharge: 35 min Core Measure Documentation - Palliative Care Palliative Care/ Comfort Measures: Not Applicable - Core Measures Any of the following diagnoses?: none Exam - Constitutional Vitals: Temp Pulse Resp BP Pulse Ox 99.0 F 94 H 94 H 125/75 90 03/26/21 05:23 03/26/21 09:50 03/26/21 09:50 03/26/21 05:48 03/26/21 05:23 General appearance: Present: no acute distress, well-nourished - EENT Eyes: Present: PERRL, EOM intact - Neck Neck: Present: supple, normal ROM - Respiratory Respiratory effort: normal Respiratory: bilateral: diminished, negative: rales, rhonchi, wheezing - Cardiovascular Rhythm: regular Heart Sounds: Present: S1 & S2 - Extremities Extremities: no ischemia, No edema - Abdominal General gastrointestinal: Present: soft, non-tender, non-distended, normal bowel sounds - Integumentary Integumentary: Present: clear, warm - Musculoskeletal Musculoskeletal: strength equal bilaterally, generalized weakness - Psychiatric Psychiatric: appropriate mood/affect, cooperative - Neurologic Neurologic: CNII-XII intact, moves all extremities Plan Activity: advance as tolerated Diet: other (cardiac diet) Additional Instructions: Your oxygen saturation resting room air and ambulatory room air is more than 96%. No need for home oxygen. If you have worsening symptoms contact MD or go to the nearest emergency room. Advised to see private MD in 3 to 5 days. Advised to see private pulmonary in 1 to 2 weeks Follow up with: PRIMARY CARE,MD [Primary Care Provider] - 3-5 Days Prescriptions: Famotidine [Pepcid] 10 mg PO BID #30 tablet Prednisone [predniSONE 10 mg (6-Day Pack, 21 Tabs)] 10 mg PO .TAPER #1 tab.ds.pk guaiFENesin/DEXTROMETHORPHAN [Robitussin Cough-Chest Dm Liq] 237 ml PO Q6H PRN 15 Days #1 bottle PRN Reason: Cough Sertraline [Zoloft] 25 mg PO QDAY #20 tablet Cetirizine HCl [Zyrtec 10mg tab] 10 mg PO DAILY PRN #10 tablet PRN Reason: Congestion
[2021-03-26 12:12] VITALS: BP 134/72
== END 2021-03-26 15:45 | disposition home health service (06) | DRG 189 ==
LOC: ED 09:12 → 3A 15:00 → 3B-SURG 22:38 → 3A 03-21 11:12 → OBSVTOIN 03-21 16:55
PROVIDERS: ADMIT Internal Medicine; ATTEND Internal Medicine
PROC: 4A033R1 Measurement of Arterial Saturation, Peripheral, Percutaneous Approach (ICD-10-PCS; principal; 2021-03-21)
DX: J96.01 Acute respiratory failure with hypoxia (principal); J45.901 Unspecified asthma with (acute) exacerbation; E66.2 Morbid (severe) obesity with alveolar hypoventilation; I10 Essential (primary) hypertension; M19.90 Unspecified osteoarthritis, unspecified site; Z68.31 Body mass index [BMI] 31.0-31.9, adult; Z79.899 Other long term (current) drug therapy; Z79.891 Long term (current) use of opiate analgesic; Z79.01 Long term (current) use of anticoagulants; Z83.3 Family history of diabetes mellitus; Z82.49 Family history of ischemic heart disease and other diseases of the circulatory system
CPT/HCPCS: 36415; 36600; 71045; 80048; 80076; 82805; 82962; 83880; 84484; 85007; 85025; 85610; 85730; 93005; 94640; 94644; 94660; 96365; 96375; G0378; J1940; J1956; J2920; J2930; J7050

== ENCOUNTER 2021-06-16 11:13 | Outpatient (CLI) | payer MEDICARE ==
[2021-06-16 11:59] LABS: Hematocrit 40.9 % (30.3-42.9); Hemoglobin 13.5 gm/dl (10.1-14.3); Mean Corpuscular HGB Conc 33 % (30-34); Mean Corpuscular Volume 86 fl (79-97); Platelet Count 188 K/mm3 (140-440); Red Blood Count 4.78 M/mm3 (3.65-5.03); Red Cell Distribution Width 14.1 % (13.2-15.2)
[2021-06-16 13:42] LABS: Erythrocyte Sedimentation Rate 29 mm/Hr (0-20)
[2021-06-19 20:33] LABS: ANA Screen, IFA Negative (Negative)
== END 2021-06-16 11:14 | disposition home or self-care (01) ==
LOC: LAB 11:13
PROVIDERS: ATTEND Internal Medicine
DX: I10 Essential (primary) hypertension (principal); M13.0 Polyarthritis, unspecified; A64 Unspecified sexually transmitted disease; Z73.9 Problem related to life management difficulty, unspecified
CPT/HCPCS: 36415; 83036; 84550; 85025; 85652; 86038; 86431; 86592